=== PATIENT | male | born 1985 | race Caucasian/White ===

== ENCOUNTER 2017-03-23 16:44 | Inpatient (IN) | payer MEDICARE, MEDICAID ==
[2017-03-23 17:29] LABS: Hematocrit 43 % (42-52); Hemoglobin 14.5 g/dl (14.0-18.0); Mean Corpuscular HGB Conc 34 g/dl (31-36); Mean Corpuscular Hemoglobin 29 pg (27-31); Mean Corpuscular Volume 84 fL (80-94); Mean Platelet Volume 7 um3 (7.4-10.4); Red Blood Count 5.04 10^6/ul (4.0-5.4); Red Cell Distribution Width 13 % (10.5-15); White Blood Count 7.8 10^3/ul (3.5-10.8)
[2017-03-23 17:42] LABS: ALT 12 U/L (7-52); AST 16 U/L (13-39); Albumin 4.5 g/dL (3.2-5.2); Alkaline Phosphatase 43 U/L (34-104); Anion Gap 4 mmol/L (2-11); BUN/Creatinine Ratio 15.8 (8-20); Blood Urea Nitrogen 15 mg/dL (6-24); CO2 Carbon Dioxide 29 mmol/L (22-32); Calcium 9.4 mg/dL (8.6-10.3); Chloride 101 mmol/L (101-111); EGFR African American 119.7 (>60); EGFR Non-African American 93.1 (>60); Globulin 2.7 g/dL (2-4); Glucose 91 mg/dL (70-100); Sodium 134 mmol/L (133-145); Total Protein 7.2 g/dL (6.4-8.9)
[2017-03-23 18:10] LABS: Urine Bilirubin Negative (Negative); Urine Glucose Negative (Negative); Urine Nitrite Negative (Negative)
[2017-03-23 18:10] LABS: Acetaminophen < 15 mcg/mL; Alcohol < 10 mg/dL (<10); Salicylate < 2.50 mg/dL (<30)
[2017-03-23 18:23] LABS: Benzodiazepine Urine Screen None Detected (None Detect)
[2017-03-23 18:25] LABS: TSH (Thyroid Stimulating Horm) 1.05 mcIU/mL (0.34-5.60)
[2017-03-24] MEDS ORDERED: Acetaminophen TAB* 325 MG PO PRN (01:39)
[2017-03-24] MEDS ORDERED: Al Hydrox/Mg Hydrox/Simet LIQ* 30 ML UDC PO PRN (01:39)
--- NOTE | 2017-03-24 05:21 | ED ---
Michelle Nova Nilda, scribed for Micheal Siddiqi MD on 03/23/17 at 1908 . Progress - Progress Note Progress Note: This patient was signed out by Dr. Evans, awaiting MHE. Mental health deicer tester recommends admission to Psych. Pt is stable and will be admitted. Course/Dx - Diagnoses Provider Diagnoses: Mental health problem The documentation as recorded by the Michelle calixto Nilda accurately reflects the service I personally performed and the decisions made by , Micheal Siddqii MD.
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
[2017-03-24] MEDS: Vitamin THERAPEUTIC TAB PO SCH (09:22)
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
[2017-03-24] MEDS: Paliperidone TAB* 3 MG TAB PO SCH (21:01)
[2017-03-25 08:16] LABS: Free T3 3.5 pg/mL (2.5-3.9)
[2017-03-25 08:17] LABS: Free T4 1.02 ng/dL (0.61-1.12)
[2017-03-25] MEDS: Vitamin THERAPEUTIC TAB PO SCH (10:01)
--- NOTE | 2017-03-25 14:57 | PN ---
Subjective - Subjective Subjective: "Cuco" reports improvement in sleep and mood despite non-adherence with prescribed Invega. "I don't want to take drugs like this, I am not legally obligated. He describes good visits with relatives. Per staff, he remains safe on checks. Objective - Appearance Appearance: Well Developed/Nourished, Healthy Appearing Dysmorphic Features: No Hygiene: Normal Grooming: Fairly Well Kept - Behavior Psychomotor Activities: Normal Exhibits Abnormal Movement: No - Attitude and Relatedness Attitude and Relatedness: Psychotically Related Eye Contact: Good - Speech Quality: Unpressured Latencies: Normal Quantity: Appropriate - Mood Patient's Decription of Mood: "Okay" - Affect Observed Affect: Tense Affect Consistent with: Dysphoria - Thought Process Patient's Thought Process: Tangential Thought Content: Yes Paranoid Ideation, No Passive Wish, No Suicidal Planning, No Homicidal Ideation - Sensorium Experiencing Hallucinations: No, Sensorium is Clear - Level of Consciousness Level of Consciousness: Alert Orientation: Yes Intact - Impulse Control Impulse Control: Tenuous - Insight and Judgement Insight and Judgement: Impaired - Group Participation Particating in Group Activities: Yes - Medication Management Medication Management Adherence: No Assessment - Assessment Inpatient DSM-IV Dx: Schizoaffective disorder, bipolar type; Clinical Impression: Ongoing impairing manic/psychotic symptoms in the context of non adherence with prescribed meds. We may need to go to court for TOO. Plan - Plan Treatment Plan: Name: NANO HOLBROOK Birthdate: 1985 [id number] Continued Medication Management: Start Medication Medications: Current Medications Acetaminophen (Tylenol Tab*) 650 mg PO Q4H PRN PRN Reason: PAIN or TEMP > 101 F Al Hydrox/Mg Hydrox/Simethicone (Maalox Plus*) 30 ml PO Q4H PRN PRN Reason: INDIGESTION Haloperidol (Haldol Tab*) 5 mg PO Q4H PRN PRN Reason: AGITATION Lorazepam (Ativan Tab(*)) 2 mg PO Q4H PRN PRN Reason: AGITATION Multivitamins (Theragran Tab*) 1 tab PO DAILY [facility] Last Admin: 03/25/17 10:01 Dose: 1 tab Paliperidone (Invega Tab*) 3 mg PO BEDTIME [facility] Last Admin: 03/24/17 21:01 Dose: Not Given - Discharge Plan Discharge Plan: Outpatient Follow Up Outpatient Program: [facility]
[2017-03-25] MEDS: Paliperidone TAB* 3 MG TAB PO SCH (22:18)
[2017-03-26] MEDS: Vitamin THERAPEUTIC TAB PO SCH (10:22)
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
[2017-03-26] MEDS: Paliperidone TAB* 3 MG TAB PO SCH (21:36)
[2017-03-27] MEDS: Vitamin THERAPEUTIC TAB PO SCH (09:32)
[2017-03-27] MEDS: Paliperidone TAB* 3 MG TAB PO SCH (20:14)
[2017-03-28] MEDS: Vitamin THERAPEUTIC TAB PO SCH (09:05)
--- NOTE | 2017-03-28 11:47 | PN ---
[facility]: Group Therapy Note - Service Type Service Type: [id number] Group Psychotherapy - Cognitive Behavioral Group Therapy ( CBT):Patient presented in CBT programming as disorganized and disruptive in discussion and needed repeated redirection to attend to presented materials.
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
[2017-03-28] MEDS: Paliperidone TAB* 3 MG TAB PO SCH (20:34)
[2017-03-29] MEDS: Vitamin THERAPEUTIC TAB PO SCH (09:18)
--- NOTE | 2017-03-29 11:34 | PN ---
[facility]: Group Therapy Note - Service Type Service Type: 94460 Group Psychotherapy - Cognitive Behavioral Group Therapy ( CBT):Patient was attentive and participatory in CBT programming this morning, and remained in good behavioral control. Patient expressed positive insights regarding relevant treatment interventions and goals.
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
[2017-03-29] MEDS: Paliperidone TAB* 3 MG TAB PO SCH (21:13)
[2017-03-30] MEDS: Vitamin THERAPEUTIC TAB PO SCH (09:31)
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
[2017-03-30] MEDS: Paliperidone TAB* 3 MG TAB PO SCH (20:51)
[2017-03-31] MEDS: Vitamin THERAPEUTIC TAB PO SCH (09:44)
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
[2017-03-31] MEDS: Paliperidone TAB* 3 MG TAB PO SCH (20:33)
[2017-04-01] MEDS: Vitamin THERAPEUTIC TAB PO SCH (09:43)
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
[2017-04-01] MEDS: Paliperidone TAB* 3 MG TAB PO SCH (22:01)
[2017-04-02] MEDS: Vitamin THERAPEUTIC TAB PO SCH (13:12)
[2017-04-02] MEDS: LORazepam TAB(*) 1 MG PO PRN (15:08)
[2017-04-02] MEDS: Haloperidol TAB* 5 MG PO PRN (15:09)
[2017-04-02] MEDS: Paliperidone TAB* 3 MG TAB PO SCH (20:11)
[2017-04-03] MEDS: Vitamin THERAPEUTIC TAB PO SCH (09:51)
[2017-04-03] MEDS: Paliperidone TAB* 3 MG TAB PO SCH (20:57)
[2017-04-03] MEDS: LORazepam TAB(*) 1 MG PO PRN (23:30)
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
[2017-04-04] MEDS: Vitamin THERAPEUTIC TAB PO SCH (11:47)
[2017-04-04] MEDS: Paliperidone TAB* 3 MG TAB PO SCH (20:59)
[2017-04-05] MEDS: Vitamin THERAPEUTIC TAB PO SCH (10:23)
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
[2017-04-05] MEDS: Paliperidone TAB* 3 MG TAB PO SCH (21:35)
[2017-04-06] MEDS: Haloperidol TAB* 5 MG PO PRN (04:47)
[2017-04-06] MEDS: LORazepam TAB(*) 1 MG PO PRN (04:47)
[2017-04-06] MEDS: Vitamin THERAPEUTIC TAB PO SCH (09:36)
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
[2017-04-06] MEDS: Paliperidone TAB* 3 MG TAB PO SCH (20:06)
[2017-04-07] MEDS: Vitamin THERAPEUTIC TAB PO SCH (09:22)
[2017-04-07] MEDS: Paliperidone TAB* 3 MG TAB PO SCH (21:32)
[2017-04-08] MEDS: LORazepam TAB(*) 1 MG PO PRN ×2 (00:15→23:40)
[2017-04-08] MEDS: Haloperidol TAB* 5 MG PO PRN (01:10)
[2017-04-08] MEDS: Vitamin THERAPEUTIC TAB PO SCH ×2 (09:30→10:41)
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
[2017-04-08] MEDS: Paliperidone TAB* 3 MG TAB PO SCH (21:48)
[2017-04-09] MEDS: Vitamin THERAPEUTIC TAB PO SCH ×2 (09:44→12:06)
[2017-04-09] MEDS: Paliperidone TAB* 3 MG TAB PO SCH (20:06)
[2017-04-09] MEDS: LORazepam TAB(*) 1 MG PO PRN (20:08)
[2017-04-10] MEDS: Vitamin THERAPEUTIC TAB PO SCH (09:23)
[2017-04-10] MEDS: Paliperidone TAB* 3 MG TAB PO SCH (22:09)
[2017-04-10] MEDS: LORazepam TAB(*) 1 MG PO PRN (22:10)
[2017-04-11] MEDS: Vitamin THERAPEUTIC TAB PO SCH (09:35)
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
[2017-04-11] MEDS: Paliperidone TAB* 3 MG TAB PO SCH (20:55)
[2017-04-11] MEDS: LORazepam TAB(*) 1 MG PO PRN (20:57)
[2017-04-12] MEDS: Vitamin THERAPEUTIC TAB PO SCH (11:05)
--- NOTE | 2017-04-12 13:01 | PN ---
[facility]: Group Therapy Note - Service Type Service Type: 08134 Group Psychotherapy - Cognitive Behavioral Therapy (CBT): Patient presents with high volume of speech that impresses as being coherent within the context of self-report, but is tangential and off topic in group context. Concerns regarding disorganization of thought are apparent.
[2017-04-12] MEDS: LORazepam TAB(*) 1 MG PO PRN (20:17)
[2017-04-12] MEDS: Paliperidone TAB* 3 MG TAB PO SCH (20:18)
[2017-04-13] MEDS: Vitamin THERAPEUTIC TAB PO SCH (09:43)
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
[2017-04-13] MEDS: Paliperidone TAB* 3 MG TAB PO SCH (20:21)
[2017-04-13] MEDS: LORazepam TAB(*) 1 MG PO PRN (20:23)
[2017-04-14] MEDS: Vitamin THERAPEUTIC TAB PO SCH (10:00)
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
[2017-04-14] MEDS: Paliperidone TAB* 3 MG TAB PO SCH (20:06)
[2017-04-14] MEDS: LORazepam TAB(*) 1 MG PO PRN (20:08)
[2017-04-15 07:51] VITALS: BP 89/45
[2017-04-15] MEDS: Vitamin THERAPEUTIC TAB PO SCH (09:01)
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
== END 2017-04-15 13:30 | disposition home or self-care (01) | DRG 885 ==
LOC: ED 16:44 → BSU 23:55
PROVIDERS: ADMIT Psychiatry & Neurology Psychiatry; ATTEND Psychiatry & Neurology Psychiatry
PROC: GZHZZZZ Group Psychotherapy (ICD-10-PCS; principal; 2017-03-23)
DX: F25.0 Schizoaffective disorder, bipolar type (principal); E03.9 Hypothyroidism, unspecified; F84.0 Autistic disorder; F42.9 Obsessive-compulsive disorder, unspecified; Z87.891 Personal history of nicotine dependence; Z81.8 Family history of other mental and behavioral disorders; Z91.14 Patient's other noncompliance with medication regimen; Z81.1 Family history of alcohol abuse and dependence
CPT/HCPCS: 36415; 80053; 80061; 80307; 80320; 80329; 81003; 83036; 83690; 84439; 84443; 84481; 85025; 90847; 90853; 96102; 99222; 99231; 99238; A9270-GY; G0480

== ENCOUNTER 2017-04-17 12:54 | Inpatient (IN) | payer MEDICARE, MEDICAID ==
[2017-04-17 14:05] LABS: ABS Basophils 0 10^3/ul (0-0.2); ABS Eosinophils 0.1 10^3/ul (0-0.6); ABS Monocytes 0.5 10^3/ul (0-0.8); ABS Neutrophils 4.7 10^3/ul (1.5-7.7); ABS Nucleated RBC 0 10^3/ul; Eosinophil % 0.8 % (0-6); Hematocrit 43 % (42-52); Hemoglobin 14.4 g/dl (14.0-18.0); Lymphocyte % 16.2 % (25-47); Mean Corpuscular HGB Conc 34 g/dl (31-36); Mean Corpuscular Hemoglobin 29 pg (27-31); Mean Corpuscular Volume 85 fL (80-94); Mean Platelet Volume 7 um3 (7.4-10.4); Nucleated Red Blood Cells % 0; Platelet Count 267 10^3/ul (150-450); Red Blood Count 5.02 10^6/ul (4.0-5.4); Red Cell Distribution Width 14 % (10.5-15); White Blood Count 6.3 10^3/ul (3.5-10.8)
[2017-04-17 14:28] LABS: EGFR Non-African American 86.7 (>60)
--- NOTE | 2017-04-17 15:26 | ED ---
Psychiatric Complaint - HPI Summary HPI Summary: 31 male presents to ED brought in by father after having unclear thoughts and being in a shizoeffective state. Patient unable to give history due to not making sense and making unclear statements, having bizarre thoughts. Father states patient was [place] [facility] [place], just released Tuesday. Was doing well at home tuesday and tuesday however yesterday when staying at home alone, went out and ingested an unknown substance that patient states was cannabis. Since this time father states patient had not been acting himself, even with taking medication appropriate. He began being bizarre, upset and not make sense to father. Father states he is acting as he was in the beginning before he was last admitted. No voiced thoughts of suicide or homicide. No other complaints at this time. No PMHx other than significant psych history with schizoaffective disorder. No other known drug or alcohol use. Has been taking medications. - History Of Current Complaint Chief Complaint: EDMentalHealth Time Seen by Provider: 04/17/17 13:23 Hx Obtained From: Patient, Family/Tongue And Groove Machine Setter - father Onset/Duration: Sudden Onset, Lasting Days - 1 Timing: Constant Severity Initially: Mild Severity Currently: Moderate Character: Manic Aggravating Factor(s): Drug Use - potential Related History: Positive For: Prior Psychiatric Issues Has Suicidal: Denies: Thoughts, With A Plan Has Homicidal: Denies: Thoughts, With A Plan Ingestion History: Type/Name Of Drug - unknown possible cannabis - Allergies/Home Medications Allergies/Adverse Reactions: Allergies Allergy/AdvReac Type Severity Reaction Status Date / Time Penicillins Allergy Unknown Verified 03/26/17 13:19 Reaction Details PMH/Surg Hx/FS Hx/Imm Hx Endocrine/Hematology History: Denies: Hx Diabetes Cardiovascular History: Denies: Hx Hypertension Sensory History: Denies: Hx Contacts or Glasses, Hx Hearing Aid Opthamlomology History: Denies: Hx Contacts or Glasses Psychiatric History: Reports: Hx Community Mental Health Tx, Hx Schizophrenia Denies: Hx Eating Disorder, Hx Suicide Attempt, Hx of Violent Episodes Against Others - Surgical History Surgery Procedure, Year, and Place: n/a - Immunization History Immunizations Up to Date: Yes Infectious Disease History: No Infectious Disease History: Denies: Traveled Outside the [place] in Last 30 Days - Family History Known Family History: Negative: Hypertension, Diabetes - Social History Alcohol Use: None Substance Use Type: Reports: Marijuana Smoking Status (MU): Former Smoker Review of Systems Constitutional: Negative Cardiovascular: Negative Respiratory: Negative All Other Systems Reviewed And Are Negative: Yes Physical Exam Triage Information Reviewed: Yes Vital Signs On Initial Exam: Initial Vitals Temp Pulse Resp BP Pulse Ox 98.1 F 89 16 133/73 100 04/17/17 13:09 04/17/17 13:09 04/17/17 13:09 04/17/17 13:09 04/17/17 13:09 Vital Signs Reviewed: Yes Appearance: Positive: Well-Appearing, No Pain Distress, Well-Nourished Skin: Positive: Warm, Skin Color Reflects Adequate Perfusion, Dry Eyes: Positive: Normal, EOMI, GWENDOLYN, Conjunctiva Clear ENT: Positive: Hearing grossly normal Neck: Positive: Supple, Nontender Respiratory/Lung Sounds: Positive: Clear to Auscultation, Breath Sounds Present. Negative: Rales, Rhonchi, Wheezes Cardiovascular: Positive: Normal, RRR, Pulses are Symmetrical in both Upper and Lower Extremities. Negative: Murmur, Rub Musculoskeletal: Positive: Normal, Strength/ROM Intact Neurological: Positive: Normal, Sensory/Motor Intact, Alert, Oriented to Person Place, Time Psychiatric: Positive: Other - patient not making sense when communicating with changing subject and bizarre thoughts - Geovani Coma Scale Best Eye Response: 4 - Spontaneous Best Motor Response: 6 - Obeys Commands Best Verbal Response: 5 - Oriented Coma Scale Total: 15 Diagnostics - Vital Signs Vital Signs Temp Pulse Resp BP Pulse Ox 04/17/17 13:09 98.1 F 89 16 133/73 100 - Laboratory Lab Results: Lab Results 04/17/17 04/17/17 Range/Units 13:49 13:49 WBC 6.3 (3.5-10.8) 10^3/ul RBC 5.02 (4.0-5.4) 10^6/ul Hgb 14.4 (14.0-18.0) g/dl Hct 43 (42-52) % MCV 85 (80-94) fL MCH 29 (27-31) pg MCHC 34 (31-36) g/dl RDW 14 (10.5-15) % Plt Count 267 (150-450) 10^3/ul MPV 7 L (7.4-10.4) um3 Neut % (Auto) 74.6 (38-83) % Lymph % (Auto) 16.2 L (25-47) % [place] % (Auto) 7.9 (1-9) % Eos % (Auto) 0.8 (0-6) % Baso % (Auto) 0.5 (0-2) % Absolute Neuts (auto) 4.7 (1.5-7.7) 10^3/ul Absolute Lymphs (auto) 1.0 (1.0-4.8) 10^3/ul Absolute Monos (auto) 0.5 (0-0.8) 10^3/ul Absolute Eos (auto) 0.1 (0-0.6) 10^3/ul Absolute Basos (auto) 0 (0-0.2) 10^3/ul Absolute Nucleated RBC 0 10^3/ul Nucleated RBC % 0 Sodium 136 (133-145) mmol/L Potassium 3.6 (3.5-5.0) mmol/L Chloride 105 (101-111) mmol/L Carbon Dioxide 24 (22-32) mmol/L Anion Gap 7 (2-11) mmol/L BUN 15 (6-24) mg/dL Creatinine 1.01 (0.67-1.17) mg/dL Est GFR ( Amer) 111.5 (>60) Est GFR (Non-Af Amer) 86.7 (>60) BUN/Creatinine Ratio 14.9 (8-20) Glucose 134 H (70-100) mg/dL Calcium 9.5 (8.6-10.3) mg/dL Total Bilirubin 0.70 (0.2-1.0) mg/dL AST 37 (13-39) U/L ALT 57 H (7-52) U/L Alkaline Phosphatase 48 (34-104) U/L Total Protein 7.3 (6.4-8.9) g/dL Albumin 4.4 (3.2-5.2) g/dL Globulin 2.9 (2-4) g/dL Albumin/Globulin Ratio 1.5 (1-3) TSH 1.78 (0.34-5.60) mcIU/mL Salicylates < 2.50 (<30) mg/dL Acetaminophen < 15 mcg/mL Serum Alcohol < 10 (<10) mg/dL Result Diagrams: 04/17/17 13:49 04/17/17 13:49 Lab Statement: Any lab studies that have been ordered have been reviewed, and results considered in the medical decision making process. Course/Dx - Course Course Of Treatment: patient was medically cleared with labs unremarkable and urinalysis without infection. No other concerning signs for medical etiology at this time. Is taking appropriate medication per father however is not acting appropriate and unsafe to be on his own. Appears to be in a schizoaffective state. Patient was signed out to Rhiannon Echeverria PA-C at shift change pending mental health eval and dispo and drug tox results as patient took a while to give urine. Although no voiced suicidal or homicidal thoughts, I feel patient would benefit from admission at this time due to mental health state. - Differential Dx/Clinical Impression Differential Diagnosis/HQI/PQRI: Positive: Acute Psychosis, Schizophrenia Provider Diagnosis: Schizoaffective disorder - Physician Notifications Discussed Care Of Patient With: MAGI Naik Time Discussed With Above Provider: 17:30 Patient Is Medically Stable For: Psych Evaluation Discharge - Discharge Plan Condition: Stable Disposition: OTHER Discharge Disposition Comment: patient was signed out to Rhiannon Echeverria at shift change pending MHE and dispo Referrals: Shira Morales MD [Primary Care Provider] -
[2017-04-17] MEDS ORDERED: LORazepam TAB(*) 1 MG PO ONE (16:20)
[2017-04-17 16:22] LABS: Urine Appearance Clear; Urine Blood Negative (Negative); Urine Color Straw; Urine Ketones Negative (Negative); Urine Protein Negative (Negative); Urine Specific Gravity 1.009 (1.010-1.030); Urine Urobilinogen Negative (Negative)
[2017-04-17] MEDS ORDERED: Al Hydrox/Mg Hydrox/Simet LIQ* 30 ML UDC PO PRN (19:52)
[2017-04-17] MEDS ORDERED: Acetaminophen TAB* 325 MG PO PRN (19:52)
[2017-04-17] MEDS: Paliperidone TAB* 3 MG TAB PO SCH (22:28)
[2017-04-18] MEDS ORDERED: Benztropine TAB* 1 MG ONE (03:24)
[2017-04-18] MEDS: Paliperidone TAB* 3 MG TAB PO SCH ×2 (03:27→20:32)
[2017-04-18] MEDS ORDERED: OLANzapine TAB*ODT* 10 MG TAB ONE (05:26)
[2017-04-18] MEDS ORDERED: OLANzapine TAB*ODT* 10 MG TAB PO ONE (06:00)
[2017-04-18] MEDS ORDERED: LORazepam TAB(*) 1 MG PO ONE (09:02)
[2017-04-18] MEDS ORDERED: LORazepam TAB(*) 1 MG ONE ×3 (09:03→22:02)
[2017-04-18] MEDS: Vitamin THERAPEUTIC TAB PO SCH (09:39)
[2017-04-18] MEDS ORDERED: Paliperidone SUSTENNA* 234 MG/1.5 ML IM ONE (10:43)
--- NOTE | 2017-04-18 14:22 | HP ---
PSYCHIATRIC HISTORY AND PHYSICAL: DATE OF ADMISSION: 04/17/17 JUSTIFICATION FOR ADMISSION: The patient is in need of 24-hour supervision and care secondary to disorganized psychotic functioning and inability to care for himself in a less restrictive setting. CHIEF COMPLAINT: "I shared my bed with Evan all night last night." HISTORY OF PRESENT ILLNESS: The patient is a 31-year-old single white male with a history of schizoaffective disorder, who was just discharged from the behavioral science unit on 04/15/17, who now returns to the hospital in the presence of his father due to extreme thought disorganization, bizarre behavior and inability to care for himself in the outpatient setting. As per his father, who is a local family physician, Dr. John Harrell, Richard took his scheduled Invega on both Tuesday and Tuesday nights, but reportedly ate a blunt of marijuana, becoming delusional, hearing things. In our emergency room, he was chanting and yelling bible verses, claiming to be speaking with " people from the past." He was cooperative but irritable. After being transferred to the mental health unit, he continued to be disorganized, crumpling up full Styrofoam cups of water and spilling them all over the ground , making random jerking movements of his extremities, punching escobedo. At one point, he was observed lying on the floor on all fours and banging his head upwards against the unit drinking fountain. Attempts to calm him down were unsuccessful and he required p.r.n. Zyprexa Zydis. It is notable that we had considered treatment over his objection as well as intramuscular long- acting Invega Sustenna, but the patient had been reluctant to take any shots and had agreed to a low dose of oral paliperidone. The patient was speculating with staff that perhaps the Ativan that he was receiving as a p.r.n. medication during his recent hospitalization was masking some of these psychotic symptoms. At any rate, he is not safe for discharge. Please refer to my psychiatric H and P, which was dictated on 03/24/17 for further history. MENTAL STATUS EXAM: The patient is a tall well-built white male with thick rimmed glasses, short hair and a stubbly hazel, wearing a T-shirt with a flannel long sleeve shirt over it. He appears to be fairly well groomed. He has intense eye contact, inappropriate interpersonal boundaries. Speech is pressured. Mood appears to be irritable with a labile affect. Thought process is tangential. Thought content reveals delusional thoughts about being persecuted and hyperreligious ideation. He is denying suicidal or homicidal ideations. He is endorsing auditory hallucinations at times banging his ears to make the auditory hallucinations stop and he is clearly responding to internal stimuli. Insight and judgment are poor given his reluctance to take injectable anti-psychotic medications in the past. Cognitively, he is awake and alert with what would appear to be an average intellect. DIAGNOSES: Mobile I: Schizoaffective disorder bipolar type, rule out cannabis use disorder. Mobile II: Deferred. Mobile III: None. Mobile IV: Moderate primary support, financial stressors. Mobile V: At this time is 31. IMPRESSION: The patient is a 31-year-old single white male with a history of schizoaffective disorder who arrives as a failed discharge following his most recent discharge from the behavioral science unit on 04/15/17, who now is brought back by his father due to disorganized, bizarre and dangerous behaviors in the community. It is clear at this point that he needs higher dosing of his antipsychotic medication and would likely benefit from long-acting injectable antipsychotic therapy. PLAN: The patient is readmitted to the adult behavioral health unit, where he is placed on q.15 minute checks for his own safety. We will resume his trial of paliperidone 3 mg p.o. q.h.s., but augment this with a trial of Invega Sustenna. We will give him an initial loading dose of 234 mg IM today and within the next 5 days can give him the standard booster dose of 156 mg. While he is here, he is certainly encouraged to avail himself of all unit activities including individual and group psychotherapies. I will likely be contacting his father, John, to establish clear communication and assistance with discharge planning, and the patient will likely follow up with the [facility] after his time of discharge. [id number]/[facility] #: [id number] MTDD
[2017-04-18] MEDS ORDERED: diPHENhydraMINE PO* 50 MG ONE (22:02)
[2017-04-19] MEDS: Vitamin THERAPEUTIC TAB PO SCH (09:37)
[2017-04-19] MEDS ORDERED: LORazepam TAB(*) 1 MG PO ONE ×2 (09:45→13:15)
[2017-04-19] MEDS ORDERED: Haloperidol TAB* 5 MG PO ONE (11:40)
[2017-04-19] MEDS ORDERED: diPHENhydraMINE PO* 50 MG PO ONE (11:40)
[2017-04-19] MEDS: diPHENhydraMINE PO* 50 MG ONE ×2 (11:48→12:30)
[2017-04-19] MEDS: Haloperidol TAB* 5 MG ONE ×2 (11:48→12:30)
[2017-04-19] MEDS ORDERED: chlorproMAZINE TAB* 100 MG PO ONE (13:15)
[2017-04-19] MEDS ORDERED: chlorproMAZINE TAB* 100 MG ONE (13:20)
[2017-04-19] MEDS ORDERED: LORazepam TAB(*) 1 MG ONE (13:20)
--- NOTE | 2017-04-19 13:23 | PN ---
Subjective - Subjective Date of Service: 04/19/17 Service Type: [id number] Hosp care 15 min low complexity Subjective: The patient is agitated and violent, punching escobedo, slamming doors, screaming to himself and getting into loud, threatening verbal altercations with multiple peers. He has received oral prn's of first ativan, then Benadryl and Haldol and now Thorazine and Ativan, however, nothing seems to be decreasing his agitation. The patient accepted the loading dose of paliperidone yesterday and took the oral adjunctive as directed this AM. He is quite ill. Objective - Appearance Appearance: Well Developed/Nourished Dysmorphic Features: No Hygiene: Normal Grooming: Fairly Well Kept - Behavior Psychomotor Activities: Abnormal-Increased Exhibits Abnormal Movement: No - Attitude and Relatedness Attitude and Relatedness: Psychotically Related Eye Contact: Poor - Speech Quality: Pressured Latencies: Short Quantity: Copious - Mood Patient's Decription of Mood: "Terrible" - Affect Observed Affect: Labile Affect Consistent with: Dysphoria - Thought Process Patient's Thought Process: Disorganized Thought Content: Yes Paranoid Ideation, No Passive Wish, No Suicidal Planning, No Homicidal Ideation - Sensorium Experiencing Hallucinations: Yes Type of Hallucinations: Visual: No, Auditory: Yes, Command: No - Level of Consciousness Level of Consciousness: Agitated Orientation: Yes Intact, Yes Orientated to Time, Yes Orientated to Place, Yes Orientated to Person - Impulse Control Impulse Control: Poor - Insight and Judgement Insight and Judgement: Impaired - Group Participation Particating in Group Activities: No - Medication Management Medication Management Adherence: Yes Assessment - Assessment Merits Inpatient Hospitalization: For Immediate Safety, For Stabilization Inpatient DSM-IV Dx: Schizoaffective DO, Bipolar Type Clinical Impression: 31 y.o. single, white male with a history of schizoaffective DO, Bipolar type, who was just discharged from the [facility] on 04/15/17, who is now readmitted on an involuntary status secondary to agitated, bizarre and unsafe behaviors in the community. Plan - Plan Treatment Plan: Name: NANO HOLBROOK Birthdate: 1985 [id number] We have resumed paliperidone 3mg PO qday and added paliperidone Sustenna 234mg IM q4wks. We'll add a booster dose of Sustenna 156mg IM this Tuesday (04/22) and encourage adherence. Will continue intensive inpatient treatment. Continued Medication Management: Start Medication Medications: Current Medications Acetaminophen (Tylenol Tab*) 650 mg PO Q4H PRN PRN Reason: PAIN or TEMP > 101 F Al Hydrox/Mg Hydrox/Simethicone (Maalox Plus*) 30 ml PO Q4H PRN PRN Reason: INDIGESTION Multivitamins (Theragran Tab*) 1 tab PO DAILY [facility] Last Admin: 04/19/17 09:37 Dose: 1 tab Paliperidone (Invega Tab*) 3 mg PO BEDTIME [facility] Last Admin: 04/18/17 20:32 Dose: 3 mg - Discharge Plan Discharge Plan: Inpatient Hospitalization
[2017-04-19] MEDS: Paliperidone TAB* 3 MG TAB PO SCH (23:30)
[2017-04-20] MEDS: Paliperidone TAB* 3 MG TAB PO SCH ×3 (03:41→20:21)
[2017-04-20] MEDS: Vitamin THERAPEUTIC TAB PO SCH (09:25)
[2017-04-20] MEDS ORDERED: LORazepam INJ* 2 MG/ML 1 ML VIAL ONE (09:42)
[2017-04-20] MEDS ORDERED: LORazepam INJ* 2 MG/ML 1 ML VIAL IM ONE (09:43)
[2017-04-20] MEDS ORDERED: Benztropine INJ* 1 MG/ML 2 ML AMP IM ONE (09:43)
[2017-04-20] MEDS ORDERED: Haloperidol INJ IV/IM* 5 MG/ML AMP IM ONE (09:43)
[2017-04-20] MEDS ORDERED: Haloperidol INJ IV/IM* 5 MG/ML AMP ONE (09:43)
[2017-04-20] MEDS ORDERED: Benztropine INJ* 1 MG/ML 2 ML AMP ONE (09:43)
[2017-04-20] MEDS ORDERED: diPHENhydraMINE PO* 50 MG PO ONE (10:00)
[2017-04-20] MEDS ORDERED: Haloperidol TAB* 5 MG PO ONE ×2 (10:00→18:40)
[2017-04-20] MEDS ORDERED: LORazepam TAB(*) 1 MG PO ONE ×2 (10:00→18:40)
--- NOTE | 2017-04-20 11:55 | PN ---
Subjective - Subjective Date of Service: 04/20/17 Service Type: [id number] Hosp care 15 min low complexity Subjective: Cuco has been pacing, agitated and screaming with outbursts of destructive behavior such as punching escobedo and slamming doors. PRN administration of oral Benadryl, lorazepam and Haldol were unsuccessful in calming him down and he shortly thereafter received an IM dose of haldol, lorazepam and benztropine. Currently he is resting comfortably in his room. Objective - Appearance Appearance: Well Developed/Nourished Dysmorphic Features: No Hygiene: Normal Grooming: Fairly Well Kept - Behavior Psychomotor Activities: Abnormal-Increased Exhibits Abnormal Movement: No - Attitude and Relatedness Attitude and Relatedness: Psychotically Related Eye Contact: Poor - Speech Quality: Pressured Latencies: Short Quantity: Copious - Mood Patient's Decription of Mood: "Angry" - Affect Observed Affect: Labile Affect Consistent with: Dysphoria - Thought Process Patient's Thought Process: Disorganized Thought Content: Yes Paranoid Ideation, No Passive Wish, No Suicidal Planning, No Homicidal Ideation - Sensorium Experiencing Hallucinations: Yes Type of Hallucinations: Visual: No, Auditory: Yes, Command: No - Level of Consciousness Level of Consciousness: Agitated Orientation: Yes Intact, Yes Orientated to Time, Yes Orientated to Place, Yes Orientated to Person - Impulse Control Impulse Control: Poor - Insight and Judgement Insight and Judgement: Impaired - Group Participation Particating in Group Activities: No - Medication Management Medication Management Adherence: Yes Assessment - Assessment Merits Inpatient Hospitalization: For Immediate Safety, For Stabilization Inpatient DSM-IV Dx: Schizoaffective DO, Bipolar Type Clinical Impression: 31 y.o. single, white male with a history of schizoaffective DO, Bipolar type, who was just discharged from the [facility] on 04/15/17, who is now readmitted on an involuntary status secondary to agitated, bizarre and unsafe behaviors in the community. Plan - Plan Treatment Plan: Name: NANO HOLBROOK Birthdate: 1985 [id number] We have resumed paliperidone 3mg PO qday and added paliperidone Sustenna 234mg IM q4wks. We'll add a booster dose of Sustenna 156mg IM this Tuesday (04/22) and encourage adherence. Will continue intensive inpatient treatment. Continued Medication Management: Continue Outpt Medication Medications: Current Medications Acetaminophen (Tylenol Tab*) 650 mg PO Q4H PRN PRN Reason: PAIN or TEMP > 101 F Al Hydrox/Mg Hydrox/Simethicone (Maalox Plus*) 30 ml PO Q4H PRN PRN Reason: INDIGESTION Multivitamins (Theragran Tab*) 1 tab PO DAILY [facility] Last Admin: 04/20/17 09:25 Dose: Not Given Paliperidone (Invega Tab*) 3 mg PO BEDTIME [facility] Last Admin: 04/20/17 05:30 Dose: 3 mg - Discharge Plan Discharge Plan: Inpatient Hospitalization
[2017-04-20] MEDS ORDERED: Benztropine TAB* 1 MG PO ONE (18:40)
[2017-04-20] MEDS ORDERED: LORazepam TAB(*) 1 MG ONE (18:50)
[2017-04-20] MEDS ORDERED: Benztropine TAB* 1 MG ONE (18:50)
[2017-04-21] MEDS: Vitamin THERAPEUTIC TAB PO SCH (09:18)
[2017-04-21] MEDS: LORazepam TAB(*) 1 MG PO PRN (11:48)
[2017-04-21] MEDS: Haloperidol TAB* 5 MG PO PRN (11:48)
[2017-04-21] MEDS: diPHENhydraMINE PO* 50 MG PO PRN (11:49)
--- NOTE | 2017-04-21 12:55 | PN ---
Subjective - Subjective Date of Service: 04/21/17 Service Type: [id number] Hosp care 15 min low complexity Subjective: Cuco continues to be hyperkinetic, easily agitated and making loud, abrupt noises on the unit that scare peers and staff alike. He accepts administration of prn medications and has received several doses of haloperidol, Benadryl, lorazepam and benztropine, both orally and via injection. The patient is willing to take his paliperidone Sustenna booster dose tomorrow and plans to comply with treatment. Asked about restlessness or akathisia, he responds "I think I'm just getting that out of my system." He denies SI or HI. Objective - Appearance Appearance: Well Developed/Nourished Dysmorphic Features: No Hygiene: Normal Grooming: Fairly Well Kept - Behavior Psychomotor Activities: Normal Exhibits Abnormal Movement: No - Attitude and Relatedness Attitude and Relatedness: Psychotically Related Eye Contact: Fair - Speech Quality: Pressured Latencies: Short Quantity: Copious - Mood Patient's Decription of Mood: "Okay" - Affect Observed Affect: Labile Affect Consistent with: Dysphoria - Thought Process Patient's Thought Process: Disorganized Thought Content: Yes Paranoid Ideation, No Passive Wish, No Suicidal Planning, No Homicidal Ideation - Sensorium Experiencing Hallucinations: Yes Type of Hallucinations: Visual: No, Auditory: Yes, Command: No - Level of Consciousness Level of Consciousness: Agitated Orientation: Yes Intact, Yes Orientated to Time, Yes Orientated to Place, Yes Orientated to Person - Impulse Control Impulse Control: Poor - Insight and Judgement Insight and Judgement: Impaired - Group Participation Particating in Group Activities: No - Medication Management Medication Management Adherence: Yes Assessment - Assessment Merits Inpatient Hospitalization: For Immediate Safety, For Stabilization Inpatient DSM-IV Dx: Schizoaffective DO, Bipolar Type Clinical Impression: 31 y.o. single, white male with a history of schizoaffective DO, Bipolar type, who was just discharged from the [facility] on 04/15/17, who is now readmitted on an involuntary status secondary to agitated, bizarre and unsafe behaviors in the community. Plan - Plan Treatment Plan: Name: NANO HOLBROOK Birthdate: 1985 [id number] We have resumed paliperidone 3mg PO qday and added paliperidone Sustenna 234mg IM q4wks. We'll add a booster dose of Sustenna 156mg IM this Tuesday (04/22) and encourage adherence. Will continue intensive inpatient treatment. Continued Medication Management: Start Medication Medications: Current Medications Acetaminophen (Tylenol Tab*) 650 mg PO Q4H PRN PRN Reason: PAIN or TEMP > 101 F Al Hydrox/Mg Hydrox/Simethicone (Maalox Plus*) 30 ml PO Q4H PRN PRN Reason: INDIGESTION Diphenhydramine HCl (Benadryl Po*) 50 mg PO Q6H PRN PRN Reason: ANXIETY Last Admin: 04/21/17 11:49 Dose: 50 mg Haloperidol (Haldol Tab*) 5 mg PO Q6H PRN PRN Reason: AGITATION Last Admin: 04/21/17 11:48 Dose: 5 mg Lorazepam (Ativan Tab(*)) 2 mg PO Q6H PRN PRN Reason: ANXIETY Last Admin: 04/21/17 11:48 Dose: 2 mg Multivitamins (Theragran Tab*) 1 tab PO DAILY [facility] Last Admin: 04/21/17 09:18 Dose: 1 tab Paliperidone (Invega Tab*) 3 mg PO BEDTIME [facility] Last Admin: 04/20/17 20:21 Dose: 3 mg Paliperidone Palmitate (Invega Sustenna*) 156 mg IM ONCE ONE Stop: 04/22/17 09:01 - Discharge Plan Discharge Plan: Inpatient Hospitalization
[2017-04-21] MEDS: Paliperidone TAB* 3 MG TAB PO SCH (20:02)
[2017-04-22] MEDS ORDERED: Paliperidone SUSTENNA* 156 MG/1 ML IM ONE (09:00)
[2017-04-22] MEDS: Vitamin THERAPEUTIC TAB PO SCH (09:13)
[2017-04-22] MEDS: LORazepam TAB(*) 1 MG PO PRN (09:49)
[2017-04-22] MEDS: Haloperidol TAB* 5 MG PO PRN ×2 (09:50→18:21)
[2017-04-22] MEDS: diPHENhydraMINE PO* 50 MG PO PRN ×2 (09:50→20:09)
--- NOTE | 2017-04-22 15:32 | PN ---
Subjective - Subjective Date of Service: 04/22/17 Service Type: [id number] Hosp care 15 min low complexity Subjective: Cuco received oral prn medications yet again this morning due to verbal outbursts and frightening, intimidating behavior on the unit. He endorses restlessness and the need to "blow off steam" but did accept the booster dose of Invega Sustenna this morning. He denies SI and HI today. Objective - Appearance Appearance: Well Developed/Nourished Dysmorphic Features: No Hygiene: Normal Grooming: Fairly Well Kept - Behavior Psychomotor Activities: Abnormal-Increased Exhibits Abnormal Movement: No - Attitude and Relatedness Attitude and Relatedness: Psychotically Related Eye Contact: Poor - Speech Quality: Pressured Latencies: Short Quantity: Copious - Mood Patient's Decription of Mood: "Okay" - Affect Observed Affect: Labile Affect Consistent with: Dysphoria - Thought Process Patient's Thought Process: Disorganized Thought Content: Yes Paranoid Ideation, No Passive Wish, No Suicidal Planning, No Homicidal Ideation - Sensorium Experiencing Hallucinations: No, Sensorium is Clear Type of Hallucinations: Visual: No, Auditory: No, Command: No - Level of Consciousness Level of Consciousness: Agitated Orientation: Yes Intact, Yes Orientated to Time, Yes Orientated to Place, Yes Orientated to Person - Impulse Control Impulse Control: Poor - Insight and Judgement Insight and Judgement: Impaired - Group Participation Particating in Group Activities: No - Medication Management Medication Management Adherence: Yes Assessment - Assessment Merits Inpatient Hospitalization: For Immediate Safety, For Stabilization Inpatient DSM-IV Dx: Schizoaffective DO, Bipolar Type Clinical Impression: 31 y.o. single, white male with a history of schizoaffective DO, Bipolar type, who was just discharged from the [facility] on 04/15/17, who is now readmitted on an involuntary status secondary to agitated, bizarre and unsafe behaviors in the community. Plan - Plan Treatment Plan: Name: NANO HOLBROOK Birthdate: 1985 [id number] We have resumed paliperidone 3mg PO qday and added paliperidone Sustenna 234mg IM q4wks (next due Tuesday, May 20). Will continue intensive inpatient treatment. Continued Medication Management: Start Medication Medications: Current Medications Acetaminophen (Tylenol Tab*) 650 mg PO Q4H PRN PRN Reason: PAIN or TEMP > 101 F Al Hydrox/Mg Hydrox/Simethicone (Maalox Plus*) 30 ml PO Q4H PRN PRN Reason: INDIGESTION Diphenhydramine HCl (Benadryl Po*) 50 mg PO Q6H PRN PRN Reason: ANXIETY Last Admin: 04/22/17 09:50 Dose: 50 mg Haloperidol (Haldol Tab*) 5 mg PO Q6H PRN PRN Reason: AGITATION Last Admin: 04/22/17 09:50 Dose: 5 mg Lorazepam (Ativan Tab(*)) 2 mg PO Q6H PRN PRN Reason: ANXIETY Last Admin: 04/22/17 09:49 Dose: 2 mg Multivitamins (Theragran Tab*) 1 tab PO DAILY [facility] Last Admin: 04/22/17 09:13 Dose: 1 tab Paliperidone (Invega Tab*) 3 mg PO BEDTIME [facility] Last Admin: 04/21/17 20:02 Dose: 3 mg - Discharge Plan Discharge Plan: Inpatient Hospitalization
[2017-04-22] MEDS: Paliperidone TAB* 3 MG TAB PO SCH (20:09)
[2017-04-23] MEDS: Haloperidol TAB* 5 MG PO PRN ×2 (02:00→12:26)
[2017-04-23] MEDS: diPHENhydraMINE PO* 50 MG PO PRN ×3 (02:00→20:10)
[2017-04-23] MEDS: LORazepam TAB(*) 1 MG PO PRN ×3 (02:00→20:10)
[2017-04-23] MEDS: Vitamin THERAPEUTIC TAB PO SCH (12:12)
[2017-04-23] MEDS: Paliperidone TAB* 3 MG TAB PO SCH (20:08)
[2017-04-24] MEDS: Vitamin THERAPEUTIC TAB PO SCH (10:00)
[2017-04-24] MEDS: Paliperidone TAB* 3 MG TAB PO SCH (20:39)
[2017-04-24] MEDS: diPHENhydraMINE PO* 50 MG PO PRN (20:40)
[2017-04-24] MEDS: LORazepam TAB(*) 1 MG PO PRN (20:40)
[2017-04-24] MEDS: Haloperidol TAB* 5 MG PO PRN (20:40)
[2017-04-25] MEDS: Vitamin THERAPEUTIC TAB PO SCH (11:26)
--- NOTE | 2017-04-25 17:07 | PN ---
Subjective - Subjective Subjective: Vasso c/o boredom, he endorses improvement in sleep, previous manic/psychotic symptoms, he denies side effects from prescribed meds. He requests access to guitar and comfort room that was granted after consulting with nursing staff. Per staff, he is loud at times but easily redirected. Objective - Appearance Appearance: Well Developed/Nourished Dysmorphic Features: No Hygiene: Normal Grooming: Well Kept - Behavior Psychomotor Activities: Abnormal-Increased Exhibits Abnormal Movement: No - Attitude and Relatedness Attitude and Relatedness: Cooperative Eye Contact: Good - Speech Quality: Unpressured Latencies: Normal Quantity: Appropriate - Mood Patient's Decription of Mood: "Okay" - Affect Observed Affect: Non-labile Affect Consistent with: Euthymia - Thought Process Patient's Thought Process: Coherent, Goal Directed Thought Content: No Passive Wish, No Suicidal Planning, No Homicidal Ideation, No Paranoid Ideation - Sensorium Experiencing Hallucinations: No, Sensorium is Clear - Level of Consciousness Level of Consciousness: Alert Orientation: Yes Intact - Impulse Control Impulse Control: Tenuous - Insight and Judgement Insight and Judgement: Poor - Group Participation Particating in Group Activities: No - Medication Management Medication Management Adherence: Yes Assessment - Assessment Merits Inpatient Hospitalization: For Ongoing Evaluation, Consolidate Improvements, For Discharge Planning Inpatient DSM-IV Dx: Schizoaffective DO, Bipolar Type Clinical Impression: Stabilizing in this structured setting, in better behavior control, tolerating trial of medications. He needs continued admission for consolidation. Plan - Plan Treatment Plan: Name: NANO HOLBROOK Birthdate: 1985 [id number] Medications: Current Medications Acetaminophen (Tylenol Tab*) 650 mg PO Q4H PRN PRN Reason: PAIN or TEMP > 101 F Al Hydrox/Mg Hydrox/Simethicone (Maalox Plus*) 30 ml PO Q4H PRN PRN Reason: INDIGESTION Diphenhydramine HCl (Benadryl Po*) 50 mg PO Q6H PRN PRN Reason: ANXIETY Last Admin: 04/24/17 20:40 Dose: 50 mg Haloperidol (Haldol Tab*) 5 mg PO Q6H PRN PRN Reason: AGITATION Last Admin: 04/24/17 20:40 Dose: 5 mg Lorazepam (Ativan Tab(*)) 2 mg PO Q6H PRN PRN Reason: ANXIETY Last Admin: 04/24/17 20:40 Dose: 2 mg Multivitamins (Theragran Tab*) 1 tab PO DAILY [facility] Last Admin: 04/25/17 11:26 Dose: 1 tab Paliperidone (Invega Tab*) 3 mg PO BEDTIME [facility] Last Admin: 04/24/17 20:39 Dose: 3 mg - Discharge Plan Discharge Plan: Outpatient Follow Up Outpatient Program: [facility]
[2017-04-25] MEDS: diPHENhydraMINE PO* 50 MG PO PRN (19:59)
[2017-04-25] MEDS: Paliperidone TAB* 3 MG TAB PO SCH (21:56)
[2017-04-26] MEDS: Vitamin THERAPEUTIC TAB PO SCH (10:11)
--- NOTE | 2017-04-26 11:43 | PN ---
Subjective - Subjective Date of Service: 04/26/17 Service Type: [id number] Hosp care 15 min low complexity Subjective: Cuco has not had any verbal or behavioral outbursts today, and yesterday was significantly better than the days preceding it. He continues to display some psychomotor activation and we discuss the possibility that he is having akathisia. He denies AH or VH today and denies SI or HI. "I really want to leave this place. I think it's being confined that's making me act up." Objective - Appearance Appearance: Well Developed/Nourished Dysmorphic Features: No Hygiene: Normal Grooming: Fairly Well Kept - Behavior Psychomotor Activities: Abnormal-Increased Exhibits Abnormal Movement: No - Attitude and Relatedness Attitude and Relatedness: Appropriate Eye Contact: Fair - Speech Quality: Unpressured Latencies: Normal Quantity: Appropriate - Mood Patient's Decription of Mood: "Good" - Affect Observed Affect: Tense Affect Consistent with: Euthymia - Thought Process Patient's Thought Process: Coherent Thought Content: Yes Paranoid Ideation, No Passive Wish, No Suicidal Planning, No Homicidal Ideation - Sensorium Experiencing Hallucinations: No, Sensorium is Clear Type of Hallucinations: Visual: No, Auditory: No, Command: No - Level of Consciousness Level of Consciousness: Alert Orientation: Yes Intact, Yes Orientated to Time, Yes Orientated to Place, Yes Orientated to Person - Impulse Control Impulse Control: Poor - Insight and Judgement Insight and Judgement: Impaired - Group Participation Particating in Group Activities: Yes - Medication Management Medication Management Adherence: Yes Assessment - Assessment Merits Inpatient Hospitalization: For Immediate Safety, For Stabilization Inpatient DSM-IV Dx: Schizoaffective DO, Bipolar Type Clinical Impression: 31 y.o. single, white male with a history of schizoaffective DO, Bipolar type, who was just discharged from the [facility] on 04/15/17, who is now readmitted on an involuntary status secondary to agitated, bizarre and unsafe behaviors in the community. Plan - Plan Treatment Plan: Name: NANO HOLBROOK Birthdate: 1985 [id number] We have resumed paliperidone 3mg PO qday and added paliperidone Sustenna 234mg IM q4wks (next due May 20). Will start propranolol 20mg PO BID for akathisia. [facility]. Will continue intensive inpatient treatment. Continued Medication Management: Start Medication Medications: Current Medications Acetaminophen (Tylenol Tab*) 650 mg PO Q4H PRN PRN Reason: PAIN or TEMP > 101 F Al Hydrox/Mg Hydrox/Simethicone (Maalox Plus*) 30 ml PO Q4H PRN PRN Reason: INDIGESTION Diphenhydramine HCl (Benadryl Po*) 50 mg PO Q6H PRN PRN Reason: ANXIETY Last Admin: 04/25/17 19:59 Dose: 50 mg Haloperidol (Haldol Tab*) 5 mg PO Q6H PRN PRN Reason: AGITATION Last Admin: 04/24/17 20:40 Dose: 5 mg Lorazepam (Ativan Tab(*)) 2 mg PO Q6H PRN PRN Reason: ANXIETY Last Admin: 04/24/17 20:40 Dose: 2 mg Multivitamins (Theragran Tab*) 1 tab PO DAILY [facility] Last Admin: 04/26/17 10:11 Dose: 1 tab Paliperidone (Invega Tab*) 3 mg PO BEDTIME [facility] Last Admin: 04/25/17 21:56 Dose: Not Given Propranolol HCl (Inderal Tab*) 20 mg PO BID [facility] - Discharge Plan Discharge Plan: Inpatient Hospitalization
[2017-04-26] MEDS: Propranolol TAB* 20 MG PO SCH ×2 (11:54→20:43)
--- NOTE | 2017-04-26 14:28 | RAD ---
INDICATION: Altered mental status. COMPARISON: There are no prior studies available for comparison. TECHNIQUE: Sagittal T1, axial T1, T2, susceptibility, FLAIR and diffusion weighted images were obtained. FINDINGS: The ventricles, cisterns and sulci appear to be within normal limits. No significant focal abnormality or mass effect is seen. No areas of restricted diffusion are present. There is no evidence for infarct or hemorrhage. There are small mucous retention cysts or polyps within both maxillary sinuses. The visualized portion of the paranasal sinuses and mastoid air cells otherwise appear clear. IMPRESSION: NEGATIVE EXAM.
[2017-04-26] MEDS: Paliperidone TAB* 3 MG TAB PO SCH (20:44)
--- NOTE | 2017-04-27 10:18 | PN ---
Subjective - Subjective Date of Service: 04/27/17 Service Type: 38614 Hosp care 15 min low complexity Subjective: The patient has not had any episodes of crying out or striking himself. He is somnolent this morning and skipped groups and AM meds. He states that he is tolerating the propranolol well and continues to deny SI, HI, AH or VH. I spoke with his father, John Holbrook, at length yesterday and he noted that Cuco has not had EEG or head imaging, as far as he knew. MRI of brain with within normal limits, but EEG results are still pending. Objective - Appearance Appearance: Well Developed/Nourished Dysmorphic Features: No Hygiene: Normal Grooming: Fairly Well Kept - Behavior Psychomotor Activities: Normal Exhibits Abnormal Movement: No - Attitude and Relatedness Attitude and Relatedness: Cooperative Eye Contact: Fair - Speech Quality: Unpressured Latencies: Normal Quantity: Terse - Mood Patient's Decription of Mood: "Okay" - Affect Observed Affect: Fair Affect Consistent with: Euthymia - Thought Process Patient's Thought Process: Coherent Thought Content: Yes Paranoid Ideation, No Passive Wish, No Suicidal Planning, No Homicidal Ideation - Sensorium Experiencing Hallucinations: No, Sensorium is Clear Type of Hallucinations: Visual: No, Auditory: No, Command: No - Level of Consciousness Level of Consciousness: Alert Orientation: Yes Intact, Yes Orientated to Time, Yes Orientated to Place, Yes Orientated to Person - Impulse Control Impulse Control: Tenuous - Insight and Judgement Insight and Judgement: Fair - Group Participation Particating in Group Activities: Yes - Medication Management Medication Management Adherence: Partial Assessment - Assessment Merits Inpatient Hospitalization: For Immediate Safety, For Stabilization Inpatient DSM-IV Dx: Schizoaffective DO, Bipolar Type Clinical Impression: 31 y.o. single, white male with a history of schizoaffective DO, Bipolar type, who was just [facility], who is now readmitted on an involuntary status secondary to agitated, bizarre and unsafe behaviors in the community. Plan - Plan Treatment Plan: Name: NANO HOLBROOK Birthdate: 1985 [id number] We have resumed paliperidone 3mg PO qday and added paliperidone Sustenna 234mg IM q4wks (next due May 20). He is also on propranolol 20mg PO BID for akathisia. MRI of brain with within normal limits, but EEG results are still pending. We will d/c oral paliperidone and prn meds to see if his symptoms are truly relieved by injectable paliperidone monotherapy. [facility] Will continue intensive inpatient treatment. Continued Medication Management: Start Medication Medications: Current Medications Acetaminophen (Tylenol Tab*) 650 mg PO Q4H PRN PRN Reason: PAIN or TEMP > 101 F Al Hydrox/Mg Hydrox/Simethicone (Maalox Plus*) 30 ml PO Q4H PRN PRN Reason: INDIGESTION Multivitamins (Theragran Tab*) 1 tab PO DAILY [facility] Last Admin: 04/26/17 10:11 Dose: 1 tab Propranolol HCl (Inderal Tab*) 20 mg PO BID [facility] Last Admin: 04/26/17 20:43 Dose: 20 mg - Discharge Plan Discharge Plan: Inpatient Hospitalization
[2017-04-27] MEDS: Vitamin THERAPEUTIC TAB PO SCH ×2 (11:43→13:56)
[2017-04-27] MEDS: Propranolol TAB* 20 MG PO SCH ×3 (11:43→20:34)
--- NOTE | 2017-04-28 00:34 | EEG ---
ELECTROENCEPHALOGRAPHY: DATE OF STUDY: , ROOM #[id number] DATE OF DICTATION: 04/27/17 PATIENT OF: Dr. Marques. CLINICAL PROBLEM: This is 31-year-old being evaluated for disorganization, bizarre behavior, and delusions. The study was done to evaluate for seizures. MEDICATIONS: Include: 1. Haloperidol. 2. Lorazepam. 3. Benadryl. 4. Maalox. 5. Phenergan. 6. Propranolol. 7. Paliperidone. REPORT: With the patient awake, background cerebral activity consists of moderate amplitude posterior dominant 10 to 11 Hz rhythm, which attenuates with eye opening and reappears with eye closure. With the patient drowsy, there is slowing into the theta range. The patient briefly becomes asleep with background consisting of diffuse irregular delta and theta activity. Normal patterns of sleep including vertex waves are noted. No epileptiform potentials, focal abnormalities, or major asymmetries of background are noted. CLINICAL IMPRESSION: This awake and briefly asleep EEG is within normal limits. [id number]/[facility] #: [id number] [facility]
[2017-04-28] MEDS: Vitamin THERAPEUTIC TAB PO SCH (09:54)
[2017-04-28] MEDS: Propranolol TAB* 20 MG PO SCH ×2 (09:54→21:17)
--- NOTE | 2017-04-28 10:56 | PN ---
Subjective - Subjective Date of Service: 04/28/17 Service Type: 97022 Hosp care 15 min low complexity Subjective: Cuco continues to present as calm, cooperative and in behavioral control, attending groups and not requiring prn administration of meds for agitation or outbursts. I communicated with his father, John, via text, and this parent indicated that family visits have been going well this week and that it is their perception that Cuco is essentially back to baseline. He is tolerating oral propranolol well with no change in vitals. He denies SI, HI, AH or VH. Objective - Appearance Appearance: Well Developed/Nourished Dysmorphic Features: No Hygiene: Normal Grooming: Well Kept - Behavior Psychomotor Activities: Normal Exhibits Abnormal Movement: No - Attitude and Relatedness Attitude and Relatedness: Cooperative Eye Contact: Good - Speech Quality: Unpressured Latencies: Normal Quantity: Appropriate - Mood Patient's Decription of Mood: "Okay" - Affect Observed Affect: Good Affect Consistent with: Euthymia - Thought Process Patient's Thought Process: Coherent Thought Content: No Passive Wish, No Suicidal Planning, No Homicidal Ideation, No Paranoid Ideation - Sensorium Experiencing Hallucinations: No, Sensorium is Clear Type of Hallucinations: Visual: No, Auditory: No, Command: No - Level of Consciousness Level of Consciousness: Alert Orientation: Yes Intact, Yes Orientated to Time, Yes Orientated to Place, Yes Orientated to Person - Impulse Control Impulse Control: Tenuous - Insight and Judgement Insight and Judgement: Fair - Group Participation Particating in Group Activities: Yes - Medication Management Medication Management Adherence: Yes Assessment - Assessment Merits Inpatient Hospitalization: Consolidate Improvements, Pending Safe DC Plan Inpatient DSM-IV Dx: Schizoaffective DO, Bipolar Type Clinical Impression: 31 y.o. single, white male with a history of schizoaffective DO, Bipolar type, who was just [facility] from the [facility] on 04[facility]/17, who is now readmitted on an involuntary status secondary to agitated, bizarre and unsafe behaviors in the community. Plan - Plan Treatment Plan: Name: NANO HOLBROOK Birthdate: 1985 [id number] The patient is improving on injectable paliperidone Sustenna 234mg IM q4wks ( next due Tuesday, May 20) for psychosis and propranolol 20mg PO BID for akathisia. MRI of brain and EEG are within normal limits. We will target tomorrow, 04/29, for discharge. Continued Medication Management: Start Medication Medications: Current Medications Acetaminophen (Tylenol Tab*) 650 mg PO Q4H PRN PRN Reason: PAIN or TEMP > 101 F Al Hydrox/Mg Hydrox/Simethicone (Maalox Plus*) 30 ml PO Q4H PRN PRN Reason: INDIGESTION Lorazepam (Ativan Tab(*)) 2 mg PO Q6H PRN PRN Reason: ANXIETY Last Admin: 04/24/17 20:40 Dose: 2 mg Multivitamins (Theragran Tab*) 1 tab PO DAILY [facility] Last Admin: 04/28/17 09:54 Dose: 1 tab Propranolol HCl (Inderal Tab*) 20 mg PO BID [facility] Last Admin: 04/28/17 09:54 Dose: 20 mg - Discharge Plan Discharge Plan: [facility]
[2017-04-29 08:11] VITALS: BP 107/72
[2017-04-29] MEDS: Vitamin THERAPEUTIC TAB PO SCH (11:15)
[2017-04-29] MEDS: Propranolol TAB* 20 MG PO SCH (11:15)
--- NOTE | 2017-04-30 00:07 | DS ---
DISCHARGE SUMMARY: DATE OF ADMISSION: 04/17/17 DATE OF DISCHARGE: 04/29/17 DISCHARGE DIAGNOSES: Are as follows: Tonica I: Schizoaffective disorder, bipolar type. Tonica II: Deferred. Tonica III: None. Tonica IV: Moder ate primary support and financial stressors. Tonica V: At the time of admission was 31 and at the time of discharge is 61. CONDITION AT THE TIME OF DISCHARGE: Improved. The patient is tolerating his injectable long-acting antipsychotic, Invega Sustenna quite well and he is agreeable with continuing this medication on an o utpatient basis. He has denied suicidal or homicidal ideations throughout this hospitalization. He has been safe on all checks in the week leading up to discharge. We are no longer seeing evidence of psychotic thought process. He is no longer having verbal or behavioral outbursts. He is calm, coop erative, social, attending group programming and socializing with peers appropriately. He has been v isited several times by his father, John Harrell as well as his stepmother and the family feels that he is back to his baseline and they are in favor of the discharge plan. In fact, his father is forest truong to the hospital to pick him up to provide him with transportation home. Richard has a safe apartmen t in the community and he is agreeable with outpatient services at the [facility]. Richard is appropriately requesting discharge and we do not feel that there is any legal jus tification to continued involuntary care. MENTAL STATUS EXAM AT THE TIME OF DISCHARGE: The patient is a tall, well-built white male with thick rimmed glasses, short dark hair, and a stubbly hazel, wearing a yellow T-shirt with long back jeans. He appears to have fair grooming. Has good eye contact. He is calm and cooperative. Speech has n ormal rate, tone, and volume. Mood is euthymic with a full affect. Thought process is linear and go al directed. Thought content is significant for his desire to leave the hospital with his family. H e denies suicidal or homicidal ideations. He denies auditory or visual hallucinations. Insight and judgment are fair given his willingness to follow up with outpatient treatment. Cognitively, he is a wake and alert with what would appear to be an average intellect. DISCHARGE INSTRUCTIONS: To the patient: A. Medications: He is on Invega Sustenna 234 mg IM q.4 weeks. Next injection is due Tuesday, . He is also taking propranolol 20 mg p.o. b.i.d. for akathisia. B. Diet is regular. C. Activities: As tolerated. The patient is a nonsmoker. There are no laboratory or diagnostic st udies pending at the time of discharge. D. Followup care: The patient will follow up with the [facility] on , 05/03/17. There, he sees Dr. Marni Capps and he also receives case management and psychotherapy services through that agency. E. Substance abuse followup is nonapplicable. HOSPITAL COURSE: Part A: Reason for admission: The patient is a 31-year-old single while male with a history of schizoaffective disorder who was just discharged from the [facility] on 04/15/17, who now returns to the hospital in the presence of his father due to extreme thought d isorganization, bizarre behavior, and inability to care for himself in the outpatient setting. As pe r his father who is a local family physician, Dr. John Harrell, Richard took his scheduled Invega on both Tuesday and Tuesday nights, but reportedly ate a blunt of marijuana, becoming delusional and hea ring things. In our emergency room, he was chanting and yelling Bible verses, claiming to be speakin g with " people from the past." He was cooperative, but irritable. After being transferred to [facility], he continued to be disorganized, crumpling up full Styrofoam cups of water and spilling them all over the ground, making random jerking movements of his extremities, punching wall s. At one point, he was observed lying on the floor on all fours and banging his head upwards agains t the unit drinking fountain. Attempts to calm him down were unsuccessful and he required p.r.n. Zypr exa Zydis. It is notable that we had considered treatment over his objection as well as intramuscular long-acting Invega Sustenna, but the patient had been reluctant to take any shots and had agreed ins tead to a low dose of oral paliperidone. The patient was speculating with staff that perhaps the Ati van that he had been receiving on a p.r.n. basis during his previous hospitalization was somehow mask ing some of these underlying psychotic symptoms. At any rate, he was clearly unsafe for further disc harge and was therefore readmitted to the hospital. Part B: Psychiatric treatment rendered: The patient was readmitted to the [facility] where he was placed on q.15 minute checks for his own safety. We immediately resumed oral palipe ridone. The patient was given his treatment options, which included either increasing paliperidone o r perhaps initiating an injectable version of paliperidone. Ultimately, he was agreeable with initia tion of Invega Sustenna and received the first loading dose of 234 mg on Tuesday, the 18 of April and later received the booster dose of 156 mg of this medication on Tuesday, the 22 of April. A fter receiving the booster dose, his behavior which had up until this point been quite labile and dis organized gradually began improving. Instead of random outbursts such as screaming to himself, punch ing escobedo or striking himself in the chest, he became more calm, more present on the unit. He starte d attending groups, socializing more. The patient was visited by his family consistently throughout his hospitalization and they noted a marked improvement in his functioning after the administration o f the booster dose of Invega. Gradually, we were able to discontinue the augmenting 3 mg of oral pal iperidone, although we did note some evidence of mild akathisia for which he was treated with propran olol 20 mg p.o. b.i.d. Due to the fact that he had never had a neurological workup, we completed an MRI of his brain, which showed nothing further than a few bilateral sinus polyps. Everything else wa s within normal limits. We also completed an EEG, which was similarly within normal limits. Because the patient had recently been admitted, we did not redo his metabolic studies, but instead reviewed those metabolic labs that were performed on the 03/25/17. Those included a hemoglobin A1c which was 4.7%, cholesterol of 158, triglycerides of 109, LDL cholesterol of 96, and HDL cholesterol of 40.0. These were within normal limits. At this time, the patient is much improved and back to baseline acc ording to his family. They are comfortable coming to pick him up and he is agreeable with continued injections of monthly Invega Sustenna as well as routine followup at [facility]. [id number]/[facility] #: [id number]
== END 2017-04-29 12:15 | disposition home or self-care (01) | DRG 885 ==
LOC: ED 12:54 → BSU 18:50
PROVIDERS: ADMIT Psychiatry & Neurology Psychiatry; ATTEND Psychiatry & Neurology Psychiatry
PROC: 4A00X4Z Measurement of Central Nervous Electrical Activity, External Approach (ICD-10-PCS; principal; 2017-04-27)
DX: F25.0 Schizoaffective disorder, bipolar type (principal); G25.71 Drug induced akathisia; T43.595A Adverse effect of other antipsychotics and neuroleptics, initial encounter; J33.8 Other polyp of sinus; F12.90 Cannabis use, unspecified, uncomplicated; R40.2412 Glasgow coma scale score 13-15, at arrival to emergency department; Y92.9 Unspecified place or not applicable; Z88.0 Allergy status to penicillin; Z87.891 Personal history of nicotine dependence
CPT/HCPCS: 36415; 70551; 80053; 80307; 80320; 80329; 81003; 84443; 85025; 95819; 99222; 99231; 99238; A9270-GY; G0480; J0515; J1630; J2060; J2426

== ENCOUNTER 2020-01-26 16:42 | Inpatient (IN) ==
[2020-01-26 17:38] LABS: ABS Eosinophils 0.2 10^3/ul (0-0.6); ABS Lymphocytes 1.6 10^3/ul (1.0-4.8); ABS Monocytes 0.5 10^3/ul (0-0.8); ABS Neutrophils 5.1 10^3/ul (1.5-7.7); Eosinophil % 2.2 %; Hematocrit 37 % (42-52); Lymphocyte % 21.5 %; Mean Corpuscular HGB Conc 35 g/dL (31-36); Mean Corpuscular Hemoglobin 29 pg (27-31); Mean Corpuscular Volume 83 fL (80-94); Mean Platelet Volume 7.7 fL (7.4-10.4); Nucleated Red Blood Cells % 0.1; Platelet Count 334 10^3/uL (150-450); Red Blood Count 4.48 10^6 /uL (4.18-5.48); Red Cell Distribution Width 14 % (10-15); White Blood Count 7.4 10^3/uL (3.5-10.8)
[2020-01-26 18:04] LABS: ALT 17 U/L (7-52); Acetaminophen < 15 mcg/mL; Albumin 4.1 g/dL (3.2-5.2); Albumin/Globulin Ratio 1.6 (1-3); Alcohol, S < 10 mg/dL (<10); Alkaline Phosphatase 43 U/L (34-104); BUN/Creatinine Ratio 18.1 (8-20); Blood Urea Nitrogen 23 mg/dL (6-24); CO2 Carbon Dioxide 22 mmol/L (22-32); Calcium 8.9 mg/dL (8.6-10.3); Chloride 105 mmol/L (101-111); EGFR Non-African American 65.3 (>60); Globulin 2.5 g/dL (2-4); Glucose 97 mg/dL (70-100); Salicylate < 2.50 mg/dL (<30); Sodium 135 mmol/L (135-145); Total Protein 6.6 g/dL (6.4-8.9)
[2020-01-26 18:13] LABS: Anion Gap 8 mmol/L (2-11)
[2020-01-26 19:15] LABS: Urine Appearance Clear; Urine Bilirubin Negative (Negative); Urine Blood Negative (Negative); Urine Color Yellow; Urine Glucose Negative (Negative); Urine Ketones Negative (Negative); Urine Nitrite Negative (Negative); Urine Protein Negative (Negative); Urine Specific Gravity 1.026 (1.010-1.030); Urine Urobilinogen Negative (Negative)
[2020-01-26 19:30] LABS: HIV 4th Generation Nonreactive (Nonreactive)
[2020-01-26 19:34] LABS: Urine Benzodiazepine Screen None Detected (None Detect); Urine Cannabinoids Screen None Detected (None Detect); Urine Opiates Screen None Detected (None Detect)
[2020-01-26] MEDS ORDERED: Al Hydrox/Mg Hydrox/Simet LIQ 30 ML UDC PO PRN (20:17)
[2020-01-26 20:49] LABS: Potassium Redraw 3.9 mmol/L (3.5-5.0)
[2020-01-27] MEDS: Vitamin THERAPEUTIC TAB PO SCH (13:41)
[2020-01-28] MEDS ORDERED: Paliperidone SUSTENNA 156 MG/1 ML IM ONE ×2 (10:53→12:00)
[2020-01-28] MEDS: Vitamin THERAPEUTIC TAB PO SCH (11:10)
[2020-01-28] MEDS ORDERED: CARIPRAZINE 1.5 MG PO SCH (21:00)
[2020-01-29 08:43] LABS: HDL Cholesterol 36.2 mg/dL
[2020-01-29] MEDS: Vitamin THERAPEUTIC TAB PO SCH (09:49)
[2020-01-29] MEDS: CARIPRAZINE 1.5 MG PO SCH (20:49)
[2020-01-29] MEDS ORDERED: Cariprazine 3 mg CAP (NF) PO SCH (21:00)
[2020-01-30] MEDS: Vitamin THERAPEUTIC TAB PO SCH (10:16)
[2020-01-30] MEDS: CARIPRAZINE 1.5 MG PO SCH (20:55)
[2020-01-31] MEDS: Vitamin THERAPEUTIC TAB PO SCH (16:48)
[2020-01-31] MEDS: CARIPRAZINE 1.5 MG PO SCH (21:20)
[2020-02-01 09:05] VITALS: BP 124/72
[2020-02-01] MEDS: Vitamin THERAPEUTIC TAB PO SCH (09:47)
== END 2020-02-01 13:39 | disposition home or self-care (01) | DRG 885 ==
LOC: ED 16:42 → BSU 18:20 → ED 19:30
PROVIDERS: ADMIT Psychiatry & Neurology Psychiatry; ATTEND Psychiatry & Neurology Psychiatry

== ENCOUNTER 2020-02-07 04:43 | Inpatient (IN) ==
[2020-02-07 06:39] LABS: CO2 Carbon Dioxide 18 mmol/L (22-32); Calcium 8.9 mg/dL (8.6-10.3); Chloride 106 mmol/L (101-111); Sodium 135 mmol/L (135-145)
[2020-02-07 06:45] LABS: ALT 26 U/L (7-52); Albumin/Globulin Ratio 1.5 (1-3); Alkaline Phosphatase 48 U/L (34-104); Anion Gap 11 mmol/L (2-11); BUN/Creatinine Ratio 27.9 (8-20); Blood Urea Nitrogen 24 mg/dL (6-24); EGFR African American 123.9 (>60); EGFR Non-African American 102.4 (>60); Globulin 2.7 g/dL (2-4); Glucose 100 mg/dL (70-100); Total Protein 6.7 g/dL (6.4-8.9)
[2020-02-07 06:52] LABS: Acetaminophen < 15 mcg/mL; Alcohol, S < 10 mg/dL (<10); Salicylate < 2.50 mg/dL (<30)
[2020-02-07 06:53] LABS: Urine Benzodiazepine Screen None Detected (None Detect); Urine Cannabinoids Screen None Detected (None Detect); Urine Opiates Screen None Detected (None Detect)
[2020-02-07 06:54] LABS: Urine Appearance Cloudy; Urine Bilirubin Negative (Negative); Urine Blood Negative (Negative); Urine Color Yellow; Urine Glucose Negative (Negative); Urine Ketones Trace (Negative); Urine Nitrite Negative (Negative); Urine Protein Negative (Negative); Urine Specific Gravity 1.024 (1.010-1.030); Urine Urobilinogen Negative (Negative)
[2020-02-07 07:08] LABS: TSH Ultra Thyroid Stim Horm 1.13 mcIU/mL (0.34-5.60)
[2020-02-07 07:13] LABS: ABS Lymphocytes 0.8 10^3/ul (1.0-4.8); ABS Monocytes 0.5 10^3/ul (0-0.8); Eosinophil % 0.2 %; Hematocrit 39 % (42-52); Hemoglobin 13.4 g/dL (14.0-18.0); Mean Corpuscular HGB Conc 34 g/dL (31-36); Mean Corpuscular Hemoglobin 29 pg (27-31); Mean Corpuscular Volume 84 fL (80-94); Mean Platelet Volume 7.1 fL (7.4-10.4); Platelet Count 342 10^3/uL (150-450); Red Blood Count 4.68 10^6 /uL (4.18-5.48); Red Cell Distribution Width 15 % (10-15); White Blood Count 9.4 10^3/uL (3.5-10.8)
[2020-02-07 07:26] LABS: Potassium Redraw 3.6 mmol/L (3.5-5.0)
[2020-02-07] MEDS ORDERED: Al Hydrox/Mg Hydrox/Simet LIQ 30 ML UDC PO PRN (10:08)
[2020-02-08] MEDS ORDERED: NF:Cariprazine 3 mg CAP (NF) PO SCH (09:00)
[2020-02-10] MEDS: Multivitamins/Minerals TAB PO SCH (13:00)
[2020-02-11] MEDS: Multivitamins/Minerals TAB PO SCH (08:24)
[2020-02-11 08:33] LABS: HDL Cholesterol 48.6 mg/dL
[2020-02-12] MEDS: Multivitamins/Minerals TAB PO SCH (09:42)
[2020-02-13] MEDS: Multivitamins/Minerals TAB PO SCH (08:45)
[2020-02-14] MEDS: Multivitamins/Minerals TAB PO SCH (15:02)
[2020-02-15] MEDS: Multivitamins/Minerals TAB PO SCH (12:01)
[2020-02-16] MEDS: Multivitamins/Minerals TAB PO SCH (08:42)
[2020-02-17] MEDS: Multivitamins/Minerals TAB PO SCH (07:42)
[2020-02-18 08:10] VITALS: BP 131/83
[2020-02-18] MEDS: Multivitamins/Minerals TAB PO SCH (08:28)
== END 2020-02-18 16:27 | disposition home or self-care (01) | DRG 885 ==
LOC: ED 04:43 → BSU 12:30
PROVIDERS: ADMIT Psychiatry & Neurology Psychiatry; ATTEND Psychiatry & Neurology Psychiatry

== ENCOUNTER 2020-02-21 21:09 | Inpatient (IN) ==
[2020-02-21 22:22] LABS: ABS Eosinophils 0.1 10^3/ul (0-0.6); ABS Lymphocytes 1.3 10^3/ul (1.0-4.8); ABS Monocytes 0.5 10^3/ul (0-0.8); ABS Neutrophils 7.9 10^3/ul (1.5-7.7); Eosinophil % 0.6 %; Hematocrit 42 % (42-52); Hemoglobin 14.3 g/dL (14.0-18.0); Lymphocyte % 13.6 %; Mean Corpuscular HGB Conc 34 g/dL (31-36); Mean Corpuscular Hemoglobin 29 pg (27-31); Mean Corpuscular Volume 84 fL (80-94); Mean Platelet Volume 6.9 fL (7.4-10.4); Platelet Count 361 10^3/uL (150-450); Red Blood Count 5.02 10^6 /uL (4.18-5.48); Red Cell Distribution Width 15 % (10-15); White Blood Count 9.8 10^3/uL (3.5-10.8)
[2020-02-21 22:28] LABS: Urine Appearance Clear; Urine Bilirubin Negative (Negative); Urine Blood Negative (Negative); Urine Color Yellow; Urine Glucose Negative (Negative); Urine Ketones Trace (Negative); Urine Nitrite Negative (Negative); Urine Protein 1+(30 mg/dL) (Negative); Urine Specific Gravity 1.028 (1.010-1.030); Urine Urobilinogen Negative (Negative)
[2020-02-21 22:40] LABS: Urine Bacteria Absent (Absent); Urine Red Blood Cell 1+(3-5/hpf) (Absent); Urine White Blood Cell Trace(0-5/hpf) (Absent)
[2020-02-21 22:43] LABS: Urine Benzodiazepine Screen None Detected (None Detect); Urine Cannabinoids Screen None Detected (None Detect); Urine Opiates Screen None Detected (None Detect)
[2020-02-21 22:43] LABS: Acetaminophen < 15 mcg/mL; Alcohol, S < 10 mg/dL (<10); Salicylate < 2.50 mg/dL (<30)
[2020-02-21 22:44] LABS: ALT 21 U/L (7-52); AST 25 U/L (13-39); Albumin 4.3 g/dL (3.2-5.2); Albumin/Globulin Ratio 1.4 (1-3); Alkaline Phosphatase 57 U/L (34-104); Anion Gap 8 mmol/L (2-11); BUN/Creatinine Ratio 17.5 (8-20); Blood Urea Nitrogen 18 mg/dL (6-24); CO2 Carbon Dioxide 26 mmol/L (22-32); Calcium 9.3 mg/dL (8.6-10.3); Chloride 103 mmol/L (101-111); EGFR African American 100.6 (>60); EGFR Non-African American 83.2 (>60); Glucose 132 mg/dL (70-100); Potassium 3.6 mmol/L (3.5-5.0); Sodium 137 mmol/L (135-145); Total Protein 7.3 g/dL (6.4-8.9)
[2020-02-21 22:58] LABS: TSH Ultra Thyroid Stim Horm 1.69 mcIU/mL (0.34-5.60)
[2020-02-22] MEDS ORDERED: Al Hydrox/Mg Hydrox/Simet LIQ 30 ML UDC PO PRN (06:59)
[2020-02-22] MEDS ORDERED: Vitamin THERAPEUTIC TAB ONE (08:54)
[2020-02-22] MEDS: Vitamin THERAPEUTIC TAB PO SCH (09:25)
[2020-02-23 08:04] LABS: HDL Cholesterol 47.5 mg/dL
[2020-02-23] MEDS: Vitamin THERAPEUTIC TAB PO SCH (08:59)
[2020-02-24] MEDS: Vitamin THERAPEUTIC TAB PO SCH (08:34)
[2020-02-25] MEDS: Vitamin THERAPEUTIC TAB PO SCH (08:22)
[2020-02-26] MEDS: Vitamin THERAPEUTIC TAB PO SCH (09:05)
[2020-02-27] MEDS: Vitamin THERAPEUTIC TAB PO SCH (09:55)
[2020-02-28] MEDS: Vitamin THERAPEUTIC TAB PO SCH (08:55)
[2020-02-29 07:55] VITALS: BP 119/74
[2020-02-29] MEDS: Vitamin THERAPEUTIC TAB PO SCH (08:44)
== END 2020-02-29 13:35 | disposition home or self-care (01) | DRG 885 ==
LOC: ED 21:09 → OBSVTOIN 02-22 00:37 → BSU 02-22 00:37 → INTOOBSV 02-22 00:37 → BSU 02-22 01:59
PROVIDERS: ADMIT Psychiatry & Neurology Psychiatry; ATTEND Psychiatry & Neurology Psychiatry

== ENCOUNTER 2021-02-26 16:38 | Inpatient (IN) ==
[2021-02-26] MEDS ORDERED: LORazepam 2 mg VIAL 1 ml ONE ×2 (16:48→18:26)
[2021-02-26] MEDS ORDERED: diphenhydrAMINE 50 MG/ML INJ SYRINGE *CHOA ONE (18:25)
[2021-02-26] MEDS ORDERED: Haloperidol 5 mg/ml SDV IV/IM 5 MG/ML AMP ONE (18:25)
[2021-02-27 00:32] LABS: Rapid COVID-19 Molecular Undetected (Undetected)
[2021-02-27] MEDS ORDERED: chlorproMAZINE TAB 50 MG Q6H PRN AGITATION PO (01:41)
[2021-02-27] MEDS ORDERED: Al Hydrox/Mg Hydrox/Simet LIQ 30 ML UDC PO PRN (01:41)
[2021-02-27] MEDS: Vitamin THERAPEUTIC TAB PO SCH ×3 (09:00→21:19)
[2021-02-28] MEDS: Vitamin THERAPEUTIC TAB PO SCH (08:59)
[2021-03-01] MEDS: Vitamin THERAPEUTIC TAB PO SCH (07:43)
[2021-03-01 08:21] LABS: HDL Cholesterol 41.8 mg/dL
[2021-03-02] MEDS: Vitamin THERAPEUTIC TAB PO SCH (08:31)
[2021-03-09] MEDS: Multivitamins/Minerals TAB PO SCH (13:50)
[2021-03-10] MEDS: Multivitamins/Minerals TAB PO SCH (09:20)
[2021-03-11] MEDS: Multivitamins/Minerals TAB PO SCH (08:19)
[2021-03-12] MEDS: Multivitamins/Minerals TAB PO SCH (08:16)
[2021-03-13] MEDS: Multivitamins/Minerals TAB PO SCH (10:28)
[2021-03-14] MEDS: Multivitamins/Minerals TAB PO SCH (08:33)
[2021-03-15] MEDS: Multivitamins/Minerals TAB PO SCH (09:48)
[2021-03-16] MEDS: Multivitamins/Minerals TAB PO SCH (09:02)
[2021-03-16 14:35] VITALS: BP 98/62
== END 2021-03-16 17:15 | disposition home or self-care (01) | DRG 885 ==
LOC: ED 16:38 → BSU 02-27 00:40
PROVIDERS: ADMIT Psychiatry & Neurology Psychiatry; ATTEND Psychiatry & Neurology Psychiatry

== ENCOUNTER 2021-07-10 15:00 | Inpatient (IN) ==
[2021-07-10 16:01] LABS: White Blood Count 4.8 10^3/uL (3.5-10.8)
[2021-07-10 16:02] LABS: ABS Eosinophils 0.1 10^3/ul (0-0.6); ABS Lymphocytes 1.4 10^3/ul (1.0-4.8); ABS Monocytes 0.4 10^3/ul (0-0.8); ABS Neutrophils 2.9 10^3/ul (1.5-7.7); Eosinophil % 1.3 %; Hematocrit 45 % (42-52); Hemoglobin 15.1 g/dL (14.0-18.0); Lymphocyte % 29.5 %; Mean Corpuscular HGB Conc 34 g/dL (31-36); Mean Corpuscular Hemoglobin 29 pg (27-31); Mean Corpuscular Volume 85 fL (80-94); Nucleated Red Blood Cells % 0.1; Platelet Count 323 10^3/uL (150-450); Red Blood Count 5.31 10^6 /uL (4.18-5.48); Red Cell Distribution Width 15 % (10-15)
[2021-07-10 16:22] LABS: Urine Appearance Clear; Urine Bilirubin Negative (Negative); Urine Blood Negative (Negative); Urine Color Yellow; Urine Glucose Negative (Negative); Urine Ketones Negative (Negative); Urine Nitrite Negative (Negative); Urine Protein Negative (Negative); Urine Specific Gravity 1.025 (1.002-1.030); Urine Urobilinogen Negative (Negative)
[2021-07-10 17:09] LABS: Urine Benzodiazepine Screen None Detected (None Detect); Urine Cannabinoids Screen None Detected (None Detect); Urine Opiates Screen None Detected (None Detect)
[2021-07-10 17:13] LABS: ALT 29 U/L (7-52); AST 19 U/L (13-39); Acetaminophen < 15 mcg/mL; Albumin 4.6 g/dL (3.2-5.2); Albumin/Globulin Ratio 1.8 (1-3); Alcohol, S < 13 mg/dL (<13); Alkaline Phosphatase 43 U/L (35-149); Anion Gap 7 mmol/L (2-11); Blood Urea Nitrogen 15 mg/dL (6-24); CO2 Carbon Dioxide 28 mmol/L (22-32); Calcium 10.3 mg/dL (8.6-10.3); Chloride 104 mmol/L (101-111); Globulin 2.6 g/dL (2-4); Glucose 96 mg/dL (70-100); Salicylate < 2.50 mg/dL (<30); Sodium 139 mmol/L (135-145); Total Protein 7.2 g/dL (6.4-8.9); eGFR CKD-EPI 90.3 (>60)
[2021-07-10] MEDS ORDERED: Al Hydrox/Mg Hydrox/Simet LIQ 30 ML UDC PO PRN (23:58)
[2021-07-11] MEDS: Nicotine PATCH 14 MG/24 HR PATCH TRANSDERM SCH (07:51)
[2021-07-11] MEDS: Vitamin THERAPEUTIC TAB PO SCH (07:51)
[2021-07-11 08:05] LABS: HDL Cholesterol 36.8 mg/dL
[2021-07-11] MEDS ORDERED: Nicotine GUM 2MG FRUIT FLAVOR PO PRN (23:00)
[2021-07-12] MEDS: Vitamin THERAPEUTIC TAB PO SCH (07:22)
[2021-07-12] MEDS: Nicotine PATCH 14 MG/24 HR PATCH TRANSDERM SCH (07:22)
[2021-07-13] MEDS: Vitamin THERAPEUTIC TAB PO SCH (07:35)
[2021-07-13] MEDS: Nicotine PATCH 14 MG/24 HR PATCH TRANSDERM SCH (09:46)
[2021-07-14] MEDS: Nicotine PATCH 14 MG/24 HR PATCH TRANSDERM SCH (13:55)
[2021-07-14] MEDS: Vitamin THERAPEUTIC TAB PO SCH (13:55)
[2021-07-15] MEDS: Vitamin THERAPEUTIC TAB PO SCH (09:51)
[2021-07-15] MEDS: Nicotine PATCH 14 MG/24 HR PATCH TRANSDERM SCH (09:51)
[2021-07-16] MEDS: Nicotine PATCH 14 MG/24 HR PATCH TRANSDERM SCH (08:42)
[2021-07-16] MEDS: Vitamin THERAPEUTIC TAB PO SCH (08:42)
[2021-07-17] MEDS: Vitamin THERAPEUTIC TAB PO SCH (08:18)
[2021-07-17] MEDS: Nicotine PATCH 14 MG/24 HR PATCH TRANSDERM SCH (08:18)
[2021-07-18] MEDS: Nicotine PATCH 14 MG/24 HR PATCH TRANSDERM SCH (08:34)
[2021-07-18] MEDS: Vitamin THERAPEUTIC TAB PO SCH (08:34)
[2021-07-19] MEDS: Nicotine PATCH 14 MG/24 HR PATCH TRANSDERM SCH (08:50)
[2021-07-19] MEDS: Vitamin THERAPEUTIC TAB PO SCH (08:50)
[2021-07-20 07:48] VITALS: BP 102/67
[2021-07-20] MEDS: Vitamin THERAPEUTIC TAB PO SCH (09:54)
[2021-07-20] MEDS: Nicotine PATCH 14 MG/24 HR PATCH TRANSDERM SCH (09:54)
== END 2021-07-20 13:26 | disposition home or self-care (01) | DRG 885 ==
LOC: ED 15:00 → BSU 22:51
PROVIDERS: ADMIT Psychiatry & Neurology Addiction Psychiatry; ATTEND Psychiatry & Neurology Psychiatry

== ENCOUNTER 2021-07-26 01:14 | Inpatient (IN) ==
[2021-07-26] MEDS ORDERED: Nicotine PATCH 21 MG/24 HR PATCH TRANSDERM ONE (01:49)
[2021-07-26 01:58] LABS: ABS Lymphocytes 1.2 10^3/ul (1.0-4.8); ABS Monocytes 0.9 10^3/ul (0-0.8); ABS Neutrophils 9.1 10^3/ul (1.5-7.7); Eosinophil % 0.1 %; Hematocrit 42 % (42-52); Hemoglobin 14.9 g/dL (14.0-18.0); Lymphocyte % 10.7 %; Mean Corpuscular HGB Conc 35 g/dL (31-36); Mean Corpuscular Hemoglobin 29 pg (27-31); Mean Corpuscular Volume 82 fL (80-94); Mean Platelet Volume 7.8 fL (7.4-10.4); Platelet Count 314 10^3/uL (150-450); Red Blood Count 5.19 10^6 /uL (4.18-5.48); Red Cell Distribution Width 14 % (10-15); White Blood Count 11.2 10^3/uL (3.5-10.8)
[2021-07-26 02:25] LABS: Urine Benzodiazepine Screen None Detected (None Detect); Urine Cannabinoids Screen None Detected (None Detect); Urine Opiates Screen None Detected (None Detect)
[2021-07-26 02:42] LABS: ALT 38 U/L (7-52); AST 27 U/L (13-39); Acetaminophen < 15 mcg/mL; Albumin/Globulin Ratio 1.9 (1-3); Alcohol, S < 13 mg/dL (<13); Alkaline Phosphatase 46 U/L (35-149); Anion Gap 11 mmol/L (2-11); Blood Urea Nitrogen 36 mg/dL (6-24); CO2 Carbon Dioxide 22 mmol/L (22-32); Calcium 9.9 mg/dL (8.6-10.3); Chloride 103 mmol/L (101-111); Globulin 2.7 g/dL (2-4); Glucose 103 mg/dL (70-100); Potassium 3.8 mmol/L (3.5-5.0); Salicylate < 2.50 mg/dL (<30); Sodium 136 mmol/L (135-145); Total Protein 7.7 g/dL (6.4-8.9); eGFR CKD-EPI 76.8 (>60)
[2021-07-26] MEDS ORDERED: Droperidol 5 MG/2 ML 2 ML VIAL IM ONE (02:51)
[2021-07-26 02:55] LABS: TSH Ultra Thyroid Stim Horm 0.77 mcIU/mL (0.34-5.60)
[2021-07-26] MEDS ORDERED: Al Hydrox/Mg Hydrox/Simet LIQ 30 ML UDC PO PRN (04:52)
[2021-07-26] MEDS: Nicotine PATCH 21 MG/24 HR PATCH TRANSDERM SCH (10:11)
[2021-07-26] MEDS: Multivitamins/Minerals TAB PO SCH (10:11)
[2021-07-27] MEDS: Nicotine PATCH 21 MG/24 HR PATCH TRANSDERM SCH (08:47)
[2021-07-27] MEDS: Multivitamins/Minerals TAB PO SCH (08:47)
[2021-07-27] MEDS ORDERED: diPHENhydraMINE IV 50 MG/ML 1 ml VIAL (BENADRYL) ONE (09:39)
[2021-07-27] MEDS ORDERED: Lorazepam PYXIS KEY ONE (09:39)
[2021-07-27] MEDS ORDERED: Haloperidol 5 mg/ml SDV IV/IM 5 MG/ML AMP ONE (09:39)
[2021-07-27] MEDS ORDERED: LORazepam 2 mg VIAL 1 ml ONE (09:39)
[2021-07-27] MEDS ORDERED: diPHENhydraMINE IV 50 MG/ML 1 ml VIAL (BENADRYL) IM ONE (09:42)
[2021-07-27] MEDS ORDERED: Lorazepam PYXIS KEY PRN (09:43)
[2021-07-27] MEDS ORDERED: LORazepam 2 mg VIAL 1 ml IM ONE (09:43)
[2021-07-27] MEDS ORDERED: Haloperidol 5 mg/ml SDV IV/IM 5 MG/ML AMP IM ONE (09:43)
[2021-07-28] MEDS: Nicotine PATCH 21 MG/24 HR PATCH TRANSDERM SCH (07:21)
[2021-07-28] MEDS: Multivitamins/Minerals TAB PO SCH (07:21)
[2021-07-29] MEDS: Multivitamins/Minerals TAB PO SCH (08:19)
[2021-07-29] MEDS: Nicotine PATCH 21 MG/24 HR PATCH TRANSDERM SCH (08:20)
[2021-07-30] MEDS: Nicotine PATCH 21 MG/24 HR PATCH TRANSDERM SCH (07:50)
[2021-07-30] MEDS: Multivitamins/Minerals TAB PO SCH (07:50)
[2021-07-30] MEDS ORDERED: Nicotine GUM 4MG FRUIT FLAVOR PO ONE (12:20)
[2021-07-31] MEDS: Multivitamins/Minerals TAB PO SCH (07:51)
[2021-07-31] MEDS: Nicotine PATCH 21 MG/24 HR PATCH TRANSDERM SCH (07:52)
[2021-08-01] MEDS: Nicotine PATCH 21 MG/24 HR PATCH TRANSDERM SCH (07:57)
[2021-08-01] MEDS: Multivitamins/Minerals TAB PO SCH (07:57)
[2021-08-01] MEDS ORDERED: Nicotine GUM 4MG FRUIT FLAVOR PO ONE (21:11)
[2021-08-02] MEDS: Nicotine PATCH 21 MG/24 HR PATCH TRANSDERM SCH (08:19)
[2021-08-02] MEDS: Multivitamins/Minerals TAB PO SCH (08:19)
[2021-08-02] MEDS: Nicotine GUM 4MG FRUIT FLAVOR PO PRN ×2 (09:05→17:24)
[2021-08-03] MEDS: Multivitamins/Minerals TAB PO SCH (08:26)
[2021-08-03] MEDS: Nicotine PATCH 21 MG/24 HR PATCH TRANSDERM SCH (08:27)
[2021-08-03] MEDS: Nicotine GUM 4MG FRUIT FLAVOR PO PRN ×2 (11:51→17:38)
[2021-08-04] MEDS: Multivitamins/Minerals TAB PO SCH (08:32)
[2021-08-04] MEDS: Nicotine PATCH 21 MG/24 HR PATCH TRANSDERM SCH (08:33)
[2021-08-04] MEDS: Nicotine GUM 4MG FRUIT FLAVOR PO PRN (14:52)
[2021-08-05] MEDS: Nicotine GUM 4MG FRUIT FLAVOR PO PRN ×3 (06:42→14:51)
[2021-08-05] MEDS: Multivitamins/Minerals TAB PO SCH (08:24)
[2021-08-05] MEDS: Nicotine PATCH 21 MG/24 HR PATCH TRANSDERM SCH (08:25)
[2021-08-06] MEDS: Multivitamins/Minerals TAB PO SCH (10:11)
[2021-08-06] MEDS: Nicotine PATCH 21 MG/24 HR PATCH TRANSDERM SCH (10:12)
[2021-08-06] MEDS: Nicotine GUM 4MG FRUIT FLAVOR PO PRN ×3 (10:12→17:56)
[2021-08-07] MEDS: Multivitamins/Minerals TAB PO SCH (09:19)
[2021-08-07] MEDS: Nicotine PATCH 21 MG/24 HR PATCH TRANSDERM SCH ×2 (11:40→17:40)
[2021-08-07] MEDS: Nicotine GUM 4MG FRUIT FLAVOR PO PRN (17:39)
[2021-08-08] MEDS: Multivitamins/Minerals TAB PO SCH (11:52)
[2021-08-08] MEDS: Nicotine PATCH 21 MG/24 HR PATCH TRANSDERM SCH ×2 (11:52→12:27)
[2021-08-08] MEDS: Nicotine GUM 4MG FRUIT FLAVOR PO PRN (12:27)
[2021-08-09] MEDS: Nicotine GUM 4MG FRUIT FLAVOR PO PRN ×2 (10:13→17:36)
[2021-08-09] MEDS: Multivitamins/Minerals TAB PO SCH (10:22)
[2021-08-09] MEDS: Nicotine PATCH 21 MG/24 HR PATCH TRANSDERM SCH (12:23)
[2021-08-09 21:03] VITALS: BP 107/73
[2021-08-10] MEDS: Multivitamins/Minerals TAB PO SCH (08:39)
[2021-08-10] MEDS: Nicotine PATCH 21 MG/24 HR PATCH TRANSDERM SCH (08:40)
[2021-08-10] MEDS: Nicotine GUM 4MG FRUIT FLAVOR PO PRN (08:40)
== END 2021-08-10 12:30 | disposition home or self-care (01) | DRG 885 ==
LOC: ED 01:14 → BSU 02:30
PROVIDERS: ADMIT Psychiatry & Neurology Psychiatry; ATTEND Student in an Organized Health Care Education/Training Program

== ENCOUNTER 2023-11-21 21:53 | Inpatient (IN) ==
[2023-11-21 22:40] LABS: ABS Lymphocytes 1.2 10^3/uL (1.0-4.8); ABS Monocytes 1.3 10^3/uL (0.0-1.1); ABS Neutrophils 10.9 10^3/uL (1.5-7.6); Hematocrit 40.7 % (38-53); Hemoglobin 13.7 g/dL (13.2-16.3); Lymphocyte % 8.8 %; Mean Corpuscular Hemoglobin 27.3 pg (27-33); Mean Corpuscular Hgb Conc 33.6 g/dL (31-36); Mean Platelet Volume 7.2 fL (7.5-11.2); Platelet Count 372 10^3/uL (150-450); Red Blood Count 5.03 10^6/uL (4.06-5.63); Red Cell Distribution Width 14.2 % (12-17); White Blood Count 13.4 10^3/uL (3.6-10.2)
[2023-11-21 23:23] LABS: ALT 47 U/L (7-52); AST 61 U/L (13-39); Acetaminophen < 15 mcg/mL; Albumin 4.9 g/dL (3.2-5.2); Albumin/Globulin Ratio 1.9 (1-3); Alcohol, S < 13 mg/dL (<13); Alkaline Phosphatase 66 U/L (35-149); Anion Gap 9 mmol/L (2-16); Blood Urea Nitrogen 34 mg/dL (6-24); CO2 Carbon Dioxide 25 mmol/L (22-32); Chloride 107 mmol/L (101-111); Creatinine, Serum 1.42 mg/dL (0.67-1.17); Globulin 2.6 g/dL (2-4); Glucose 89 mg/dL (70-100); Salicylate < 2.50 mg/dL (<30); Sodium 141 mmol/L (135-145); Total Protein 7.5 g/dL (6.4-8.9); eGFR CKD-EPI 65.7 (>60)
[2023-11-21 23:37] LABS: TSH Ultra Thyroid Stim Horm 0.39 mcIU/mL (0.34-5.60)
[2023-11-22] MEDS ORDERED: Al Hydrox/Mg Hydrox/Simet LIQ 30 ML UDC PO PRN (02:37)
[2023-11-22] MEDS: Vitamin THERAPEUTIC TAB PO SCH (07:58)
[2023-11-22] MEDS: Dexmedetomidine HCL 180 MCG FILM SL ONE (11:11)
[2023-11-24 08:20] LABS: HDL Cholesterol 31.4 mg/dL
[2023-11-24] MEDS: Nicotine GUM 4MG FRUIT FLAVOR PO PRN (23:25)
[2023-11-29 08:22] LABS: ABS Lymphocytes 1.4 10^3/uL (1.0-4.8); ABS Monocytes 0.7 10^3/uL (0.0-1.1); ABS Neutrophils 3.2 10^3/uL (1.5-7.6); Hemoglobin 13.8 g/dL (13.2-16.3); Mean Corpuscular Hemoglobin 27.8 pg (27-33); Mean Corpuscular Hgb Conc 34.5 g/dL (31-36); Mean Corpuscular Volume 80.7 fL (80-97); Mean Platelet Volume 7.1 fL (7.5-11.2); Nucleated Red Blood Cells % 0.1 %/100WBC (0.0-0.8); Platelet Count 291 10^3/uL (150-450); Red Blood Count 4.95 10^6/uL (4.06-5.63); Red Cell Distribution Width 13.5 % (12-17); White Blood Count 5.3 10^3/uL (3.6-10.2)
[2023-11-29 09:32] VITALS: BP 125/89
== END 2023-11-29 11:15 | disposition home or self-care (01) | DRG 885 ==
LOC: ED 21:53 → EDHOLD 11-22 01:34 → BSU 11-22 02:05
PROVIDERS: ADMIT Psychiatry & Neurology Psychiatry; ATTEND Psychiatry & Neurology Psychiatry

== ENCOUNTER 2024-01-23 16:49 | Inpatient (IN) ==
[2024-01-23] MEDS ORDERED: Lorazepam PYXIS KEY PRN (17:10)
[2024-01-23] MEDS: Haloperidol 5 mg/ml SDV IV/IM 5 MG/ML AMP IM ONE (17:20)
[2024-01-23] MEDS: LORazepam 2 mg VIAL 1 ml IM ONE (17:20)
[2024-01-23 18:16] LABS: ABS Lymphocytes 1.4 10^3/uL (1.0-4.8); ABS Monocytes 0.6 10^3/uL (0.0-1.1); ABS Neutrophils 4.4 10^3/uL (1.5-7.6); ABS Nucleated RBC 0.01 10^3/ul; Eosinophil % 0.2 %; Hemoglobin 12.9 g/dL (13.2-16.3); Lymphocyte % 22.3 %; Mean Corpuscular Hemoglobin 27.3 pg (27-33); Mean Corpuscular Volume 80.4 fL (80-97); Mean Platelet Volume 7.4 fL (7.5-11.2); Nucleated Red Blood Cells % 0.1 %/100WBC (0.0-0.8); Platelet Count 284 10^3/uL (150-450); Red Blood Count 4.73 10^6/uL (4.06-5.63); Red Cell Distribution Width 13.9 % (12-17); White Blood Count 6.5 10^3/uL (3.6-10.2)
[2024-01-23 18:45] LABS: ALT 36 U/L (7-52); AST 23 U/L (13-39); Albumin 4.4 g/dL (3.2-5.2); Albumin/Globulin Ratio 1.8 (1-3); Alcohol, S < 13 mg/dL (<13); Alkaline Phosphatase 69 U/L (35-149); Anion Gap 8 mmol/L (2-16); Blood Urea Nitrogen 26 mg/dL (6-24); CO2 Carbon Dioxide 24 mmol/L (22-32); Calcium 9.3 mg/dL (8.6-10.3); Chloride 108 mmol/L (101-111); Globulin 2.4 g/dL (2-4); Glucose 107 mg/dL (70-100); Potassium 3.4 mmol/L (3.5-5.0); Sodium 140 mmol/L (135-145); Total Bilirubin 0.6 mg/dL (0.2-1.0); Total Protein 6.8 g/dL (6.4-8.9); eGFR CKD-EPI 88.7 (>60)
[2024-01-23 22:18] LABS: HIV 4th Generation Nonreactive (Nonreactive)
[2024-01-24 01:19] LABS: Urine Benzodiazepine Screen None Detected (None Detect); Urine Cannabinoids Screen None Detected (None Detect); Urine Opiates Screen None Detected (None Detect)
[2024-01-24] MEDS ORDERED: Al Hydrox/Mg Hydrox/Simet LIQ 30 ML UDC PO PRN (01:58)
[2024-01-24] MEDS: Vitamin THERAPEUTIC TAB PO SCH (08:11)
[2024-01-24] MEDS: Nicotine PATCH 21 MG/24 HR PATCH TRANSDERM SCH (08:11)
[2024-01-25] MEDS: Cholecalciferol (VIT D3) 1,000 unit TAB PO SCH (08:49)
[2024-01-25] MEDS ORDERED: Lorazepam PYXIS KEY PRN (09:45)
[2024-01-25] MEDS: LORazepam 2 MG/ML 1 mL Syringe ONE (09:55)
[2024-01-25] MEDS: Haloperidol 5 mg/ml SDV IV/IM 5 MG/ML AMP ONE (09:57)
[2024-01-25] MEDS: LORazepam 2 mg VIAL 1 ml IM ONE (09:57)
[2024-01-25] MEDS: Haloperidol 5 mg/ml SDV IV/IM 5 MG/ML AMP IM ONE (09:58)
[2024-01-25] MEDS: LORazepam 2 MG/ML 1 mL Syringe IM ONE (10:33)
[2024-01-25 18:34] LABS: Clozapine 138 ng/mL (350-600); Clozapine & Norclozapine Level 254 ng/mL; Norclozapine 116 ng/mL
[2024-01-26 08:33] LABS: HDL Cholesterol 39.3 mg/dL
[2024-01-26] MEDS: Nicotine GUM 2MG FRUIT FLAVOR PO PRN (14:36)
[2024-01-26] MEDS: Paliperidone SUSTENNA 234 MG/1.5 ML IM ONE (16:43)
[2024-01-27] MEDS: Nicotine GUM 4MG FRUIT FLAVOR PO PRN (17:35)
[2024-01-30] MEDS: Paliperidone SUSTENNA 156 MG/1 ML IM ONE (12:46)
[2024-02-01 15:11] LABS: Hematocrit 39.5 % (38-53); Hemoglobin 13.4 g/dL (13.2-16.3); Mean Corpuscular Hemoglobin 27.5 pg (27-33); Mean Corpuscular Volume 80.8 fL (80-97); Mean Platelet Volume 7.5 fL (7.5-11.2); Platelet Count 284 10^3/uL (150-450); Red Blood Count 4.89 10^6/uL (4.06-5.63); White Blood Count 6.1 10^3/uL (3.6-10.2)
[2024-02-07 16:52] LABS: Clozapine 231 ng/mL (350-600); Clozapine & Norclozapine Level 361 ng/mL; Norclozapine 130 ng/mL
[2024-02-18 11:03] VITALS: BP 129/86
[2024-02-19] MEDS ORDERED: Polyethylene Glycol 3350 17 GM PACKET PO PRN (06:55)
[2024-02-21 08:27] LABS: ABS Lymphocytes 1.7 10^3/uL (1.0-4.8); ABS Monocytes 0.8 10^3/uL (0.0-1.1); ABS Neutrophils 3.7 10^3/uL (1.5-7.6); ABS Nucleated RBC 0.01 10^3/ul; Eosinophil % 0.1 %; Hematocrit 40.1 % (38-53); Hemoglobin 13.7 g/dL (13.2-16.3); Lymphocyte % 27.1 %; Mean Corpuscular Hemoglobin 27.6 pg (27-33); Mean Corpuscular Hgb Conc 34.1 g/dL (31-36); Mean Corpuscular Volume 80.8 fL (80-97); Mean Platelet Volume 7.4 fL (7.5-11.2); Nucleated Red Blood Cells % 0.1 %/100WBC (0.0-0.8); Platelet Count 276 10^3/uL (150-450); Red Blood Count 4.96 10^6/uL (4.06-5.63); Red Cell Distribution Width 13.7 % (12-17); White Blood Count 6.3 10^3/uL (3.6-10.2)
[2024-02-23 20:54] LABS: Clozapine 364 ng/mL (350-600); Clozapine & Norclozapine Level 485 ng/mL; Norclozapine 121 ng/mL
== END 2024-02-24 11:30 | DRG 885 ==
LOC: ED 16:49 → EDHOLD 01-24 01:38 → BSU 01-24 07:16
PROVIDERS: ADMIT Student in an Organized Health Care Education/Training Program; ATTEND Psychiatry & Neurology Psychiatry